=== PATIENT | female | born 2000 | race Caucasian/White ===

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

== ENCOUNTER 2022-10-26 10:24 | Emergency (ER) | payer BC, SELFPAY ==
--- OUTSIDE RECORDS SUMMARY | 2022-10-26 10:28 | XMS REPORT | Continuity of Care Document ---
:2000 Author Organization [facility] t Address [address] [place] [address] [address] [place] [address] Care Team Providers Name Role Phone Vero Healy Attending Clinician Gaye KINNEY, Leandra Attending Clinician Gaye KINNEY, Leandra Admitting Clinician Payers Payer Name Policy Type Policy Number Effective Date Expiration Date [facility] [id number] 2017 GLOBAL 00:00:00 Problems Condition Condition Condition Status Onset Resolution Last Treating Co mments Source Name Details Category Date Date Treatment Clinician Date Tylenol Tylenol Disease Active Univers toxicity, toxicity, 7-15 ity of [place] intent, 00 Me dical initial initial Branch encounter encounter Pharyngiti Pharyngiti Problem Active C ommon s, s, Spirit unspecifie unspecifie - [facility] d etiology d etiology [facility] Cough Cough Problem Active Common Spirit - [facility] Acute left Acute left Diagnosis Active Common ankle pain ankle pain Sp hank - [facility] Sprain of Sprain of Diagnosis Active C ommon anterior anterior Spirit talofibula talofibula - [facility] r ligament r ligament St of left of left [facility] ankle, ankle, Medical initial initial Center encounter encounter Allergies, Adverse Reactions, Alerts Allergy Allergy Status Severity Reaction(s) Onset Inactive Treating Comm ents Source Name Type Date Date Clinician NO KNOWN Drug Active Univers ALLERGIE Class [facility] [place] [facility] Social History Social Habit Start Date Stop Date Quantity Comments Source Exposure to Not sure [facility] SARS-CoV-2 [place] [facility] (event) Branch Tobacco use and 2021-06-02 2021-06-02 Never used Universit y of exposure 00:00:00 00:00:00 [facility] Alcohol intake 2021-06-02 2021-06-02 Ex-drinker [facility] 00:00:00 00:00:00 (finding) [facility] Sex Assigned At [birth year] Universit y of 00:00:00 00:00:00 [facility] Smoking Status Start Date Stop Date Source Never smoker [facility] Medications Ordered Filled Start Stop Current Ordering Indication Dosage Frequency Signature Comments Components Source Medication Medication Date Date Medication? Clinician (SIG) Name Name acetylcyste 2020- No 100mg/k 4,760 mg Univers ine 06-03 07-17 g (100 mg/kg ity of (ACETADOTE) 12:30: 04:29 ?47.6 kg), [place] 4,760 mg in 00 :00 IV Medical D5W 1,000 Infusion, Branc h mL IV CONTINUOUS infusion , Starting Third Dose Sun06/03/21 at 0730, For 16 hours NaCl 0.9% Yes 1000mL at 100 Univ ers (NS) IV 7-16 mL/hr, IV ity of infusion 08:30: Infusion[place] 1[place]000 [place] 00 CONTINUOUS Medic al , Starting Branch Sun06/03/21 at 0330, Until Discontinu ed, Routine NaCl 0.9% 2020- No 1000mL at 999 Uni vers (NS) bolus 06-03 07-16 mL/hr, ity of infusion 08:30: 07:51 1,000 mL, [place] as 1,000 mL 00 :00 IV Medical Piggyback, Branch ONCE, 1 dose, Sun06/03/21 at 0330, STAT ondansetron Yes 4mg 4 mg, Slow Univers (ZOFRAN 7-16 IV Push, ity of (PF)) 07:13: Q6HPRN, [place] injection 4 44 Starting Medi sheldon mg Fri [place] 06/03/21 at 0213, Until Discontinu ed, Routine, Nausea and Vomiting (N/V) ondansetron 2020- No 4mg 4 mg, Slow Univers (ZOFRAN 7-16 07-16 IV Push, ity of (PF)) 03:45: 02:40 ONCE, 1 [place] injection 4 00 :00 dose, [place] Med ical mg 06/02/21 at Branch 2245, Routine pantoprazol No 80mg 80 mg, IV Univers e 06-03 Push, ity of (PROTONIX) 00:00: 23:15 ONCE, 1 [place] as 80 mg in 00 :00 dose, [place] Medica l NaCl 0.9% 06/02/21 at Bran ch (NS) 20 mL 1900, 20 syringe mL NaCl 0.9% 2020- No 1000mL at 999 Uni vers (NS) bolus 06-03 mL/hr, ity of infusion 00:00: 23:12 1,000 mL, Jordy as 1,000 mL 00 :00 IV Medical Infusion, Branch ONCE, 1 dose, [place] 06/02/21 at 1900, STAT sulfamethox 2020- No [id number] 1{tbl} Take 1 [facility] [place] [facility] azole-trime 05-24 [id number] tablet by ity of thoprim 00:00: 00:00 mouth 2 [place] 800-160 mg 00 :00 (two) Medical per tablet times [place] daily. Vital Signs Vital Name Observation Time Observation Value Comments Source Systolic blood 2021-06-03 16:00:00 105 [facility]Hg[facility] Diastolic blood 2021-06-03 16:00:00 72 mm[Hg] [facility] Heart rate 2021-06-03 16:00:00 69 /min [facility] Body temperature 2021-06-03 16:00:00 36.17 Michelle [facility] Respiratory rate 2021-06-03 16:00:00 18 /min [facility] Oxygen saturation in 2021-06-03 16:00:00 99 /min [facility] Arterial blood by [facility] Pulse oximetry [place] Body height 2021-06-02 22:38:00 162.6 cm [facility] Body weight 2021-06-02 22:38:00 47.628 kg [facility] BMI 2021-06-02 22:38:00 18.02 kg/m2 [facility] Procedures Procedure Date / Time Performing Clinician Source Performed COMP. METABOLIC PANEL 2021-06-03 13:23:00 Gaye golden [facility] ([id number]) Medical Branch ACETAMINOPHEN 2021-06-03 13:23:00 Gaye golden [facility] AMMONIA, PLASMA 2021-06-03 11:30:00 Gaye [facility] LIPID PANEL 2021-06-03 09:51:00 Gaye [facility] ([id number])(TOTAL Medical [place] CHOLESTEROL, TRIGLYCERIDES, HDL) ACUTE CARE VENOUS BLOOD 2021-06-03 07:57:00 Gaye [facility] GAS [facility] LACTIC ACID WHOLE BLOOD 2021-06-03 07:57:00 Gaye [facility] PHOSPHORUS 2021-06-03 07:52:00 Gaye [facility] MAGNESIUM 2021-06-03 07:52:00 Gaye [facility] THYROID STIMULATING 2021-06-03 07:52:00 Gaye golden [facility] HORMONE [facility] BASIC METABOLIC PANEL 2021-06-03 07:52:00 Gaye [facility] (NA, K, CL, CO2, Medical [place] GLUCOSE, BUN, CREATININE, CA) SALICYLATE 2021-06-03 07:52:00 Gaye golden [facility] PROTHROMBIN TIME / INR 2021-06-03 07:52:00 Gaye golden [facility] XR CHEST 1 VW 2021-06-02 23:49:45 Vero Saldana [facility] POCT TEST 2021-06-02 23:20:00 Vero Saldana [facility] COVID-19 (ID NOW RAPID 2021-06-02 23:10:00 [facility] COMP. METABOLIC PANEL 2021-06-02 23:07:00 Vero Saldana [facility] ([id number]) Medical Branch SALICYLATE 2021-06-02 23:07:00 Vero Saldana [facility] ETHANOL 2021-06-02 23:07:00 Vero Saldana [facility] URINE DRUG (IMMUNOASSAY) 2021-06-02 23:07:[address] [facility] SCREEN CBC WITH DIFF 2021-06-02 23:07:00 Vero Saldana [facility] GLYCOSYLATED HEMOGLOBIN 2021-06-02 23:07:00 Leandra Huizar [facility] (A1C) [facility] URINALYSIS 2021-06-02 23:07:00 Vero Saldana [facility] LIPASE 2021-06-02 23:07:00 [facility] Start End Encounter Admission Attending Care Care Encounter Source Date/Time Date/Time Type Type Clinicians Facility Department ID 2021-09-19 Emergency [facility] [id number] Univers 08:33:01 ity [facility] 2021-06-02 2021-06-03 Emergency Vero Saldana [facility] [id number] Univers 17:41:00 12:55:00 Leandra Huizar [place] [id number] [facility] [id number] [facility] [id number] [place] [id number] Branch 2018-07-08 2018-07-08 [facility] Common 10:30:00 10:30:00 [facility] Results Test Description Test Time Test Comments Results Result Comments Source ACETAMINOPHEN 2021-06-03 14:22:06 Test Item Value Reference Range Interpretation Comme nts ACETAMINOP (test code = 4837826455) <10.0 10.0-30.0 L HORTENCIA (test code = HORTENCIA) Toxic: Greater than 200 ug/mL @ 4 hour post ingestion or greater than 50 ug/mL @ 12 hour post ingestion Lab Interpretation (test code = Abnormal 67384-3) [id number]2021-06-03 14:21:45 Test Item Value Reference Range Interpretation Comments NA (test code = 136 mmol/L 135-145 3307859838) K (test code = 3.7 mmol/L 3.5-5.0 6158829951) CL (test code = 110 mmol/L 98-108 H 5051392253) CO2 TOTAL (test code = 19 mmol/L 23-31 L 6818008005) AGAP (test code = 2-16 0517282085) BUN (test code = 8 mg/dL 7-23 5817745975) GLUCOSE (test code = 132 mg/dL 70-110 H 3457755165) CREATININE (test code = 0.44 mg/dL 0.50-1.04 L 5471286010) TOTAL BILI (test code = 0.5 mg/dL 0.1-1.9 7456607740) CALCIUM (test code = 8.6 mg/dL 8.6-10.6 2164225227) T PROTEIN (test code = 6.4 g/dL 6.3-8.2 5260259815) ALBUMIN (test code = 3.4 g/dL 3.5-5.0 L 6883946616) ALK PHOS (test code = 45 U/L 34-122 5985785061) ALTv (test code = 13 U/L 5-35 1742-6) AST(SGOT) (test code = 24 U/L 13-40 9421013895) eGFR (test code = mL/min/1.73m2 7588639925) HORTENCIA (test code = HORTENCIA) Association of Glomerular Filtration Rate (GFR) and Staging of Kidney Disease* + --+ --+ ------+| GFR (mL/min/1.73 m2) ?| With Kidney Damage ?| ?Without Kidney Damage+ --------+ --------+ +| ?>90 ?| ?Stage one ?| ? Normal ?+ ---+ ---+ -------+| ?60-89 ?| ?Stage two ?| ? Decreased GFR ? + --+ --+ ------+| ?30-59 ?| ?Stage three ?| ? Stage three ? + --+ --+ ------+| ?15-29 ?| ?Stage four ? | ? Stage four ?+ ---+ ---+ -------+| ?<15 (or dialysis) ? ?| ?Stage five ? | ? Stage five ?+ ---+ ---+ -------+ *Each stage assumes the associated GFR level has been in effect for at least three months. ?Stages 1 to 5, with or without kidney disease, indicate chronic kidney disease. Notes: Determination of stages one and two (with eGFR >59mL/min/1.73 m2) requires estimation of kidney damage for at least three months as defined by structural or functional abnormalities of the kidney, manifested by either:Pathological abnormalities or Markers of kidney damage (including abnormalities in the composition of the blood or urine or abnormalities in imaging tests). Lab Interpretation Abnormal (test code = 61495-6) [facility], [id number] 12:23:13 Test Item Value Reference Range Interpretation Comments AMMONIA (test code = 4751757324) <9 9-33 L Lab Interpretation (test code = Abnormal 68273-0) [facility] CenterL[facility] ([id number])(TOTAL CHOLESTEROL, TRIGLYCERIDES, HDL)2021-06-03 10:46:29 Test Item Value Reference Range Interpretation Comments CHOL (test code = 72 mg/dL 120-200 L 6530420241) HDL (test code = 31 mg/dL >50 L 9663531842) HDLC RATIO (test code = See_Comment [Au tomated message] 5161625811) The system Incont generated this result transmitted ref erence range: <=4.5. T he reference range was not used to int erpret this result as normal/abnormal . TRIG (test code = 28 mg/dL 30-170 L 6534715560) LDL CHOL (test code = 35 mg/dL See_Comment [Auto mated message] 41885-9) The system Incont generated this result transmitted ref erence range: <=160. T he reference range was not used to int erpret this result as normal/abnormal . VLDL (test code = 6 mg/dL 5-60 3599559504) Lab Interpretation (test Abnormal code = 48452-0) [facility] Center[facility] STIMULATING [id number] 10:19:36 Test Item Value Reference Range Interpretation Comments TSH (test code = See_Comment [Automated message] 4897129474) The system Incont generated this result transmitted ref erence range: 0.45 - 4 .70 mIU/L. The refe rence range was not u sed to interpret this result as normal/abnor mal. Lab Interpretation (test Normal code = 64450-5) [facility]2021-[facility]-16 09:48:34 Test Item Value Reference Range Interpretation Comments MAGNESIUM (test code = 9067748105) 1.9 mg/dL 1.7-2.4 Lab Interpretation (test code = Normal 66888-2) [facility]2021-[facility]-16 09:48:33 Test Item Value Reference Range Interpretation Comments PHOSPHORUS (test code = 4431256598) 3.8 mg/dL 2.5-5.0 Lab Interpretation (test code = Normal 67284-2) [facility] CenterPROTHROMBIN TIME / [id number] 09:16:27 Test Item Value Reference Range Interpretation Comments PROTIME PATIENT (test See_Comment [Auto mated message] code = 5964-2) The system [employer] generated this result transmitted ref erence range: 12.0 - 1 4.7 Seconds. The re ference range was not u sed to interpret this result as normal/abnor mal. INR (test code = 6301-6) Nor mal INR <1.1; Warfarin Therap eutic range 2.0 to 3. 0 or 2.5 to 3.5, dep ending upon the indica tions. Lab Interpretation (test Normal code = 71713-7) [facility] CenterSAL[facility]ATE2021-07-16 08:54:06 Test Item Value Reference Range Interpretation Comments SALICYLATE (test code <10 mg/L = 3976128986) HORTENCIA (test code = HORTENCIA) Therapeutic Range: ? Analgesic and Antipyretic Use ? 20-100 mg/L ? ? Anti-Inflammatory Use ? 100-250 mg/L Toxic Range: ? Greater than 300 mg/L [facility]ACET[facility]INOP[facility]EN2021-07-16 08:52:24 Test Item Value Reference Range Interpretation Comments ACETAMINOP (test code = 13.0 ug/mL 10.0-30.0 8744891560) HORTENCIA (test code = HORTENCIA) Toxic: Greater than 200 ug/mL @ 4 hour post ingestion or greater than 50 ug/mL @ 12 hour post ingestion Lab Interpretation (test Normal code = 02852-5) [facility] METABOLIC PANEL (NA, K, CL, CO2, GLUCOSE, BUN, CREATININE, CA)2021-06-03 08:51:44 Test Item Value Reference Range Interpretation Comments NA (test code = 138 mmol/L 135-145 9659374357) K (test code = 4.1 mmol/L 3.5-5.0 5491079095) CL (test code = 111 mmol/L 98-108 H 2797901780) CO2 TOTAL (test code = 20 mmol/L 23-31 L 7841387541) AGAP (test code = 2-16 5750961058) BUN (test code = 12 mg/dL 7-23 1577705707) GLUCOSE (test code = 106 mg/dL 70-110 6786434358) CREATININE (test code = 0.50 mg/dL 0.50-1.04 1778723735) CALCIUM (test code = 8.9 mg/dL 8.6-10.6 9552341048) eGFR (test code = mL/min/1.73m2 8184610248) HORTENCIA (test code = HORTENCIA) Association of Glomerular Filtration Rate (GFR) and Staging of Kidney Disease* + --+ --+ ------+| GFR (mL/min/1.73 m2) ?| With Kidney Damage ?| ?Without Kidney Damage+ --------+ --------+ +| ?>90 ?| ?Stage one ?| ? Normal ?+ ---+ ---+ -------+| ?60-89 ?| ?Stage two ?| ? Decreased GFR ? + --+ --+ ------+| ?30-59 ?| ?Stage three ?| ? Stage three ? + --+ --+ ------+| ?15-29 ?| ?Stage four ? | ? Stage four ?+ ---+ ---+ -------+| ?<15 (or dialysis) ? ?| ?Stage five ? | ? Stage five ?+ ---+ ---+ -------+ *Each stage assumes the associated GFR level has been in effect for at least three months. ?Stages 1 to 5, with or without kidney disease, indicate chronic kidney disease. Notes: Determination of stages one and two (with eGFR >59mL/min/1.73 m2) requires estimation of kidney damage for at least three months as defined by structural or functional abnormalities of the kidney, manifested by either:Pathological abnormalities or Markers of kidney damage (including abnormalities in the composition of the blood or urine or abnormalities in imaging tests). Lab Interpretation Abnormal (test code = 76211-6) [facility] CenterGLYCOSYLATED HEMOGLOBIN (A1C)2021-06-03 08:51:34 Test Item Value Reference Range Interpretation Comments HGB A1C (test code = 5.0 % 4.0-5.7 4548-4) HORTENCIA (test code = HORTENCIA) Reference RangesNormal: <5.7%Prediabetes: 5.7 - 6.4%Diabetes: > 6.5% Lab Interpretation (test Normal code = 07964-9) [facility] VENOUS BLOOD [id number] 08:09:06 Test Item Value Reference Range Interpretation Comments PH (test code = 7.32-7.42 4782434823) PCO2 ZAHRAA (test code = See_Comment L [Auto mated message] 1913870643) The system Incont generated this result transmitted ref erence range: 41 - 51 mmHg. The reference r aby was not used to interpret this result as normal/abnor mal. PO2 ZAHRAA (test code = See_Comment HH [Autom ated message] 7872806798) The system In[employer] generated this result transmitted ref erence range: 25 - 40 mmHg. The reference r aby was not used to interpret this result as normal/abnor mal. HCO3 ZAHRAA (test code = See_Comment L [Auto mated message] 1585113180) The system Incont generated this result transmitted ref erence range: 24 - 28 mEq/L. The reference r aby was not used to interpret this result as normal/abnor mal. AC VBE(BEAKER) (test mEq/L code = 1045772409) Lab Interpretation (test Abnormal code = 52133-5) [facility] CenterLactic Acid Whole [id number] 08:08:21 Test Item Value Reference Range Interpretation Comments LACTIC ACID (test code = 0.74 mmol/L 0.50-2.20 6257513988) Lab Interpretation (test code = Normal 08988-5) [facility] CenterXR CHEST 1 [id number] 00:59:36 No acute cardiopulmonary process. Preliminary Report Dictated by Resident: Victor Manuel Leary MD., have reviewed this study and agree withthe above report.EXAM: XR CHEST 1 VW CLINICAL INDICATION: suicidal COMPARISON: None TECHNIQUE: Frontal and lateral views of the chest were obtained. FINDINGS: No focal consolidation, pleural effusion, or pneumothorax. The cardiac silhouette i s normal in size. No acute osseous abnormality. [facility], Radiant Results Inft User - 06/02/2021 8:00 PMCDT EXAM: XR CHEST 1 VWCLINICAL INDICATION: suicidal COMPARISON: NoneTECHNIQUE: Frontal and lateral views of the chest were obtained.FINDINGS:No focal consolidation, pleural effusion, or pneumothorax. The cardiac silhouette is normal in size.No acute osseous abnormality. IMPRESSIONNo acute cardiopulmonary process.Preliminary Report Dictatedby Resident: Victor Manuel Robles MD., have reviewed this study and agree withtheabove report.[facility] CenterACETAMINOPHEN2021-07-16 00:30:38 Test Item Value Reference Range Interpretation Comments ACETAMINOP (test code = 105.0 ug/mL 10.0-30.0 H 2669967542) HORTENCIA (test code = HORTENCIA) Toxic: Greater than 200 ug/mL @ 4 hour post ingestion or greater than 50 ug/mL @ 12 hour post ingestion Lab Interpretation (test Abnormal code = 50734-3) [facility] CenterUR[facility]UG (IMMUNOASSAY) - COMPREHENSIVE DRUG [id number] 00:26:28 Test Item Value Reference Range Interpretation Comments AMPHET (test code = Negative Negative 7641114680) JOSY U (test code = Negative Negative 7915339734) BENZO U (test code = Negative Negative 1380102619) Cocaine Metabolite (test Negative Negative code = 5112947658) METHADONE (test code = Negative Negative 7910189960) OPIATES (test code = Negative Negative 1675198209) PCP (test code = Negative Negative 8406405302) THC (test code = Presumptive Positive Negative A 8059287705) HORTENCIA (test code = HORTENCIA) Urine Drug Cutoff Ranges Cocaine: ? 150 ng/mLBenzodiazepines: ? ? 200 ng/mLMethadone: ? 300 ng/mLAmphetamine: ? 1,000 ng/mLOpiates: ? 300 ng/mLCannabinoids: ?50 ng/mLPhencyclidine: ? ? ? 25 ng/mLBarbiturates: ?200 ng/mL The results are to be used only for medical (i.e., treatment) purposes. Unconfirmed screening results must not be used for non-medical purposes (e.g., employment testing, legal testing). Lab Interpretation (test Abnormal code = 25475-0) [facility] CenterSALICYLATE2021-07-16 00:20:36 Test Item Value Reference Range Interpretation Comments SALICYLATE (test code <10 mg/L = 9691213507) HORTENCIA (test code = HORTENCIA) Therapeutic Range: ? Analgesic and Antipyretic Use ? 20-100 mg/L ? ? Anti-Inflammatory Use ? 100-250 mg/L Toxic Range: ? Greater than 300 mg/L [facility] CenterETHANOL2021-07-16 00:09:42 Test Item Value Reference Range Interpretation Comments ALCOHOL (test code = <10 mg/dL 4767404662) HORTENCIA (test code = HORTENCIA) <10 Dtxvaauk96-714 Toxic>100 Depression of SALESPERSON TRAILERS AND MOTOR HOMES>400 Fatalities Reported [facility] CenterCOMP. METABOLIC PANEL ([id number])2021-06-03 00:08:51 Test Item Value Reference Range Interpretation Comments NA (test code = 143 mmol/L 135-145 4365284834) K (test code = 3.7 mmol/L 3.5-5.0 6832096664) CL (test code = 107 mmol/L 98-108 3058362666) CO2 TOTAL (test code = 23 mmol/L 23-31 6771525093) AGAP (test code = 2-16 2026851712) BUN (test code = 14 mg/dL 7-23 5074360322) GLUCOSE (test code = 93 mg/dL 70-110 3902174582) CREATININE (test code = 0.64 mg/dL 0.50-1.04 2770440996) TOTAL BILI (test code = 0.4 mg/dL 0.1-1.3 8850472613) CALCIUM (test code = 9.7 mg/dL 8.6-10.6 7707353205) T PROTEIN (test code = 8.8 g/dL 6.3-8.2 H 0045965038) ALBUMIN (test code = 5.2 g/dL 3.5-5.0 H 1195535038) ALK PHOS (test code = 78 U/L 34-122 6847641299) ALTv (test code = 15 U/L 5-35 1742-6) AST(SGOT) (test code = 27 U/L 13-40 3182135204) eGFR (test code = mL/min/1.73m2 5285549806) HORTENCIA (test code = HORTENCIA) Association of Glomerular Filtration Rate (GFR) and Staging of Kidney Disease* + --+ --+ ------+| GFR (mL/min/1.73 m2) ?| With Kidney Damage ?| ?Without Kidney Damage+ --------+ --------+ +| ?>90 ?| ?Stage one ?| ? Normal ?+ ---+ ---+ -------+| ?60-89 ?| ?Stage two ?| ? Decreased GFR ? + --+ --+ ------+| ?30-59 ?| ?Stage three ?| ? Stage three ? + --+ --+ ------+| ?15-29 ?| ?Stage four ? | ? Stage four ?+ ---+ ---+ -------+| ?<15 (or dialysis) ? ?| ?Stage five ? | ? Stage five ?+ ---+ ---+ -------+ *Each stage assumes the associated GFR level has been in effect for at least three months. ?Stages 1 to 5, with or without kidney disease, indicate chronic kidney disease. Notes: Determination of stages one and two (with eGFR >59mL/min/1.73 m2) requires estimation of kidney damage for at least three months as defined by structural or functional abnormalities of the kidney, manifested by either:Pathological abnormalities or Markers of kidney damage (including abnormalities in the composition of the blood or urine or abnormalities in imaging tests). Lab Interpretation Abnormal (test code = 93897-0) [facility] CenterLIPASE2021-07-16 00:08:51 Test Item Value Reference Range Interpretation Comments LIPASE (test code = 4002336178) 58 U/L 0-220 Lab Interpretation (test code = Normal 72758-2) [facility] CenterURINALYSIS2021-07-16 00:07:31 Test Item Value Reference Range Interpretation Comments APPEARANCE (test code = Cloudy Clear A 9941280605) COLOR (test code = Yellow Yellow 7684863577) PH (test code = 4.8-8.0 8043384820) SP GRAVITY (test code = 1.003-1.030 H 2237745201) GLU U QUAL (test code = Normal Normal 9147893777) BLOOD (test code = Negative Negative 3112094176) KETONES (test code = Negative Negative 1344527434) PROTEIN (test code = 30 mg/dL Negative A 2887-8) UROBILIN (test code = Normal Normal 0388608593) BILIRUBIN (test code = Negative Negative 0760284126) NITRITE (test code = Negative Negative 1755588058) LEUK GIOVANNY (test code = Negative Negative 0603751347) RBC/HPF (test code = See_Comment H [Autom ated message] 3972290405) The system Incont generated this result transmitted ref erence range: 0 - 3 HP F. The reference range was not used to int erpret this result as normal/abnormal . WBC/HPF (test code = See_Comment [Autom ated message] 8791579997) The system Incont generated this result transmitted ref erence range: 0 - 5 HP F. The reference range was not used to int erpret this result as normal/abnormal . BACTERIA (test code = Few Negative A 0922506482) MUCOUS (test code = Marked Negative LPF A 4459711258) SQ EPITH (test code = HPF 4080619422) CA OXALATE (test code = See_Comment H [Au tomated message] 7085364015) The system Incont generated this result transmitted ref erence range: <=1 HPF. The reference range was not used to int erpret this result as normal/abnormal . Lab Interpretation (test Abnormal code = 54663-2) [facility] CenterCBC WITH [id number] 23:56:26 Test Item Value Reference Range Interpretation Comments WBC (test code = See_Comment [Automated 6690-2) message] The sy stem which generated this result transmitted reference range : 4.50 - 13.50 10*3/?L. The reference range was not used to interpret this result as normal/abnormal . RBC (test code = See_Comment [Automated 789-8) message] The sy stem which generated this result transmitted reference range : 4.10 - 5.10 10*6/?L. The reference range was not used to interpret this result as normal/abnormal . HGB (test code = 13.7 g/dL 12.0-16.0 718-7) HCT (test code = 41.7 % 36.0-45.0 4544-3) MCV (test code = 95.6 fL 78.0-95.0 H 787-2) MCH (test code = 31.4 pg 26.0-32.0 785-6) MCHC (test code = 32.9 g/dL 32.0-36.0 786-4) RDW-SD (test code = 45.3 fL 38.5-49.0 83230-2) RDW-CV (test code = 12.8 % 11.5-14.0 788-0) PLT (test code = See_Comment [Automated 777-3) message] The sy stem which generated this result transmitted reference range : 135 - 361 10*3/ ?L. The reference r aby was not used to interpret this result as normal/abnormal . MPV (test code = 11.1 fL 9.4-13.3 41171-3) NRBC/100 WBC (test See_Comment [Automat ed code = [id number]) message] The system which generated this result transmitted reference range : 0.0 - 10.0 /100 WBCs. The refer ence range was not u sed to interpret th is result as normal/abnormal . NRBC x10^3 (test code <0.01 See_Comment [Auto mated = [id number]) message] The s ystem which generated this result transmitted reference range : 10*3/?L. The reference range was not used to interpret this result as normal/abnormal . GRAN MAT (NEUT) % 62.6 % (test code = 770-8) IMM GRAN % (test code 0.30 % = 0115422385) LYMPH % (test code = 26.0 % 736-9) MONO % (test code = 9.6 % 5905-5) EOS % (test code = 0.9 % 713-8) BASO % (test code = 0.6 % 706-2) GRAN MAT x10^3(ANC) 4.36 10*3/uL 1.50-10.30 (test code = 4020462826) IMM GRAN x10^3 (test <0.03 0.00-0.06 code = 5885112997) LYMPH x10^3 (test code 1.81 10*3/uL 0.70-7.40 = 731-0) MONO x10^3 (test code 0.67 10*3/uL 0.00-0.50 H = 742-7) EOS x10^3 (test code = 0.06 10*3/uL 0.00-0.40 711-2) BASO x10^3 (test code 0.04 10*3/uL 0.00-0.10 = 704-7) Lab Interpretation Abnormal (test code = 85698-0) [facility]2021-06-02 23:40:07 Test Item Value Reference Range Interpretation Comments SARS-CoV-2 Rapid ID NOW Not Detected Not Detected (test code = 96086-7) HORTENCIA (test code = HORTENCIA) ID NOW COVID-19 Assay is an isothermal nucleic acid amplification test intended for the qualitative detection of nucleic acid from SARS-CoV-2 viral RNA in nasopharyngeal (DISTRIBUTION DISPATCHER) specimens. It is used under Emergency Use Authorization (EUA) by FDA. The limit of detection (LOD) of the assay is 125 Genome Equivalents/mL. A positive result is indicative of the presence of SARS-CoV-2 RNA. ?Clinical correlation with patient history and other diagnostic information is necessary to determine patient infection status. A negative (Not Detected) result does not preclude SARS-CoV-2 infection. In patients with clinical symptoms and other tests that are consistent with SARS-CoV-2 infection, negative results should be treated as presumptive negative and a new specimen should be tested with alternative PCR molecular test. Invalid: Please collect a new specimen for repeat patient testing if clinically indicated. Lab Interpretation Normal (test code = 65135-2) [id number] Test Item Value Reference Range Interpretation Comments POCT PREG (test code = 1605) negative On board controls acceptable with present C Line (test code = 3574) POCT PREG LOT # (test code = 3575) [id number] POCT PREG TEST DATE (test 11-18-2022 code = 3576) Lab Interpretation (test code = Normal 67017-0) [facility]"
[2022-10-26 11:21] LABS: Urine Blood Trace-lysed (Negative); Urine Glucose Negative (Negative); Urine Protein Trace (Negative)
[2022-10-26 11:41] LABS: Urine Mucus Slight /HPF (None Seen)
--- NOTE | 2022-10-26 12:22 | ER ---
Nurse's Notes [facility] Name: Amy Corral Age: 22 yrs Sex: Female : 2000 Arrival Date: 10/26/2022 Time: 10:27 Bed Treatment Private MD: Diagnosis: UTI/ Urinary tract infection, site not specified Presentation: 10/26 10:32 Chief complaint: Patient states: she has been having UTI symptoms for approx one week. ap3 patient states she took AZO pills and her symptoms have not improved. She states she now has right lower back pain, and her urine has gone from a highway maintainer color to a cloudy color. Coronavirus screen: At this time, the client does not indicate any symptoms associated with coronavirus-19. Ebola Screen: No symptoms or risks identified at this time. Initial Sepsis Screen: Does the patient meet any 2 criteria? No. Patient's initial sepsis screen is negative. Does the patient have a suspected source of infection? No. Patient's initial sepsis screen is negative. Risk Assessment: Do you want to hurt yourself or someone else? Patient reports no desire to harm self or others. Onset of symptoms is unknown. 10:32 Method Of Arrival: Ambulatory ap3 10:32 Acuity: LIAM 3 ap3 Triage Assessment: 10:34 General: Appears in no apparent distress. Behavior is calm, cooperative. Pain: ap3 Complains of pain in right low back. Neuro: Level of Consciousness is awake, alert, obeys commands, Oriented to person, place, time, situation, Gait is steady, Speech is normal. Respiratory: Airway is patent Respiratory effort is even, unlabored, Respiratory pattern is regular, symmetrical. : Reports uti symptoms. 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 - Social history:: Smoking status: Patient denies any tobacco usage or history of. - Family history:: not pertinent. - Hospitalizations: : No recent hospitalization is reported. Screenin:37 Abuse screen: Denies threats or abuse. Nutritional screening: No deficits noted. kr3 Tuberculosis screening: No symptoms or risk factors identified. Fall Risk None identified. Assessment: 12:35 General: Appears in no apparent distress. comfortable, Behavior is calm, cooperative, kr3 appropriate for age. Pain: Complains of pain in back. Neuro: Level of Consciousness is awake, alert, obeys commands. Cardiovascular: Patient's skin is warm and dry. Respiratory: Airway is patent Respiratory effort is even, unlabored, Respiratory pattern is regular, symmetrical. GI: No signs and/or symptoms were reported involving the gastrointestinal system. : Urine is cloudy. EENT: No signs and/or symptoms were reported regarding the EENT system. Derm: Skin is dry. Musculoskeletal: Circulation, motion, and sensation intact. Vital Signs: 10:32 BP 122 / 81; Pulse 83; Resp 17; Temp 98.1; Pulse Ox 100% ; Weight 50.8 kg; Height 5 ft. ap3 3 in. (160.02 cm); 12:37 BP 118 / 83; Pulse 68; Resp 16; Pulse Ox 100% on R/A; kr3 10:32 Body Mass Index 19.84 (50.80 kg, 160.02 cm) ap3 ED Course: 10:27 Patient arrived in ED. as 10:28 Ralph Eckert MD is Attending Physician. rn 10:34 Triage completed. ap3 10:36 Arm band placed on left wrist. ap3 10:45 Bed in low position. Call light in reach. Side rails up X 1. kr3 11:22 Lalitha Vasquez RN is Primary Nurse. kr3 12:37 No provider procedures requiring assistance completed. Patient did not have IV access kr3 during this emergency room visit. Administered Medications: 12:35 Drug: DiFLUcan (fluconazole) 200 mg Route: PO; kr3 12:35 Follow up: Response: No adverse reaction kr3 12:35 Drug: Cipro (ciprofloxacin) 500 mg Route: PO; kr3 12:35 Follow up: Response: No adverse reaction kr3 Medication: 12:38 VIS not applicable for this client. kr3 Outcome: 12:21 Discharge ordered by . rn 12:37 Discharged to home ambulatory. kr3 12:37 Condition: stable 12:37 Discharge instructions given to patient, Instructed on discharge instructions, follow up and referral plans. medication usage, Demonstrated understanding of instructions, follow-up care, medications, Prescriptions given X 3. 12:38 Patient left the ED. kr3 Signatures: Barby Palomino Roman, MD MD rn Ilana Driscoll RN RN ap3 Lalitha Vasquez RN RN kr3
--- NOTE | 2022-10-26 12:23 | EDPHYS ---
Physician Documentation [facility] Name: Amy Corral Age: 22 yrs Sex: Female : 2000 Arrival Date: 10/26/2022 Time: 10:27 Bed Treatment Private MD: ED Physician Ralph Eckert HPI: 10/26 10:45 This 22 yrs old Female presents to ER via Ambulatory with complaints of Urinary rn Problem, Low Back Pain. 10:45 The patient presents with urinary symptoms, frequency, urgency. Onset: The rn symptoms/episode began/occurred 1 week(s) ago. Modifying factors: The symptoms are alleviated by nothing, the symptoms are aggravated by urinating. Associated signs and symptoms: Pertinent positives: urinary frequency, Pertinent negatives: fever, vaginal discharge. Severity of symptoms: At their worst the symptoms were mild, in the emergency department the symptoms are unchanged. The patient has not experienced similar symptoms in the past. The patient has not recently seen a physician. Pt reports 1 week of urinary frequency and low back pain. No injury. No hx of UTI. Not . No fever/chills. No abd pain.. 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 - Social history:: Smoking status: Patient denies any tobacco usage or history of. - Family history:: not pertinent. - Hospitalizations: : No recent hospitalization is reported. ROS: 10:45 Constitutional: Negative for fever, chills, and weight loss, Eyes: Negative for injury, rn pain, redness, and discharge, Neck: Negative for injury, pain, and swelling, Cardiovascular: Negative for chest pain, palpitations, and edema, Respiratory: Negative for shortness of breath, cough, wheezing, and pleuritic chest pain, Abdomen/GI: Negative for abdominal pain, nausea, vomiting, diarrhea, and constipation, Back: Negative for injury : + urinary frequency and urgency MS/Extremity: Negative for injury and deformity, Skin: Negative for injury, rash, and discoloration, Neuro: Negative for headache, weakness, numbness, tingling, and seizure. Exam: 10:45 Constitutional: This is a well developed, well nourished patient who is awake, alert, rn and in no acute distress. Head/Face: Normocephalic, atraumatic. Cardiovascular: Regular rate and rhythm. No pulse deficits. Respiratory: No increased work of breathing, no retractions or nasal flaring. Abdomen/GI: soft, non-tender, no peritoneal signs Back: No spinal tenderness. No costovertebral tenderness. Full range of motion. Skin: Warm, dry MS/ Extremity: Pulses equal, no cyanosis. Neuro: Awake and alert, GCS 15 Vital Signs: 10:32 BP 122 / 81; Pulse 83; Resp 17; Temp 98.1; Pulse Ox 100% ; Weight 50.8 kg; Height 5 ft. ap3 3 in. (160.02 cm); 12:37 BP 118 / 83; Pulse 68; Resp 16; Pulse Ox 100% on R/A; kr3 10:32 Body Mass Index 19.84 (50.80 kg, 160.02 cm) ap3 MDM: 10:28 Patient medically screened. rn 12:20 Differential diagnosis: urinary tract infection, vaginosis, yeast infection. Data rn reviewed: vital signs, nurses notes, lab test result(s), and as a result, I will discharge patient. Counseling: I had a detailed discussion with the patient and/or guardian regarding: the historical points, exam findings, and any diagnostic results supporting the discharge/admit diagnosis, lab results, the need for outpatient follow up, to return to the emergency department if symptoms worsen or persist or if there are any questions or concerns that arise at home. Special discussion: I discussed with the patient/guardian in detail that at this point there is no indication for admission to the hospital. It is understood, however, that if the symptoms persist or worsen the patient needs to return immediately for re-evaluation. 10/26 10:40 Order name: Urine Culture rn 10/26 10:40 Order name: Urine Microscopic Only; Complete Time: 12:15 rn 10/26 11:21 Order name: Urine Dipstick-Ancillary; Complete Time: 11:30 EDMS 10/26 11:32 Order name: Urine --Ancillary (enter results) kj1 10/26 10:40 Order name: Urine Dipstick-Ancillary (obtain specimen); Complete Time: 11:22 rn 10/26 10:40 Order name: Urine Test (obtain specimen); Complete Time: : rn Administered Medications: 12:35 Drug: DiFLUcan (fluconazole) 200 mg Route: PO; kr3 12:35 Follow up: Response: No adverse reaction kr3 12:35 Drug: Cipro (ciprofloxacin) 500 mg Route: PO; kr3 12:35 Follow up: Response: No adverse reaction kr3 Disposition Summary: 10/26/22 12:21 Discharge Ordered Location: Home rn Problem: new rn Symptoms: have improved rn Condition: Stable rn Diagnosis - UTI/ Urinary tract infection, site not specified rn Followup: rn - With: Private Physician - When: As needed - Reason: Recheck today's complaints, Re-evaluation by your physician Discharge Instructions: - Discharge Summary Sheet rn - Urinary Tract Infection, Adult rn Forms: - Medication Reconciliation Form rn - Thank You Letter rn - Antibiotic l d rn - Prescription Opioid Use rn Prescriptions: - Pyridium 200 mg Oral Tablet - take 1 tablet by ORAL route every 8 hours for 3 days; 9 tablet; Refills: 0, rn Product Selection Permitted - Cipro 500 mg Oral Tablet - take 1 tablet by ORAL route every 12 hours for 7 days; 14 tablet; Refills: 0, rn Product Selection Permitted - Fluconazole 150 mg Oral Tablet - take 1 tablet by ORAL route twice, one week apart 1 week; 2 tablet; Refills: 0, rn Product Selection Permitted Signatures: Dispatcher [employer] Ralph Tinsley MD MD rn Prokisch, Amanda RN RN ap3 Lalitha Vasquez RN RN kr3
[2022-10-26] MEDS ORDERED: CIPROFLOXACIN HCL 500 MG TAB ONE (12:28)
[2022-10-26] MEDS ORDERED: FLUCONAZOLE 100 MG TAB ONE (12:28)
[2022-10-26 14:16] VITALS: TEMP 98.1; O2SAT 100
[2022-10-26 14:17] VITALS: BP 118/83
== END 2022-10-26 12:38 | disposition home or self-care (01) ==
LOC: ER 10:24
DX: N39.0 Urinary tract infection, site not specified (principal)
CPT/HCPCS: 81003; 81015; 81025; 87077; 87086; 87088; 87186; 99283

== ENCOUNTER 2023-06-13 14:31 | Emergency (ER) | payer BC, SELFPAY ==
--- OUTSIDE RECORDS SUMMARY | 2023-06-13 14:35 | XMS REPORT | Continuity of Care Document ---
:2000 Author Organization [facility] t Address [address] [facility] [address] [place] [address] Care Team Providers Name Role Phone Ziggy Velasquez Amanda Primary Care Physician LISA WARREN Attending Clinician Unavailable Erick JEONG, Eun Attending Clinician Unavailable Doctor Unassigned, [place] Attending Clinician Unavailable Lisa Fitzgerald Attending Clinician [phone] Vero Healy Attending Clinician Leandra Huizar MD Attending Clinician Leandra Huizar MD Admitting Clinician Payers Payer Name Policy Type Policy Number Effective Date Expiration Date [facility] [id number] 2017 [facility] 00:00:00 [place] [facility] [id number] 2023 00:00:00 Problems Condition Condition Condition Status Onset Resolution Last Treating Co mments Source Name Details Category Date Date Treatment Clinician Date Supervisio Supervisio Disease Active U nivers n of n of 7-13 ity of high[place]risk [place] Tylenol Tylenol Disease Active Univers toxicity, toxicity, 7-15 [place] intent, 00 Me dical initial initial Branch encounter encounter Pharyngiti Pharyngiti Problem Active C ommon s, s, Spirit unspecifie unspecifie - [facility] d etiology d etiology [facility] Cough Cough Problem Active Common Spirit - [facility] Acute left Acute left Diagnosis Active Common ankle pain ankle pain Sp hank - [facility] Sprain of Sprain of Diagnosis Active C ommon anterior anterior Spirit talofibula talofibula - [facility] r ligament r ligament St of left of left [facility] ankle, ankle, Medical initial initial Center encounter encounter Allergies, Adverse Reactions, Alerts Allergy Allergy Status Severity Reaction(s) Onset Inactive Treating Comm ents Source Name Type Date Date Clinician NO KNOWN Drug Active Univers ALLERGIE Class ity of S [facility] Social History Social Habit Start Date Stop Date Quantity Comments Source ASSERTION 2023-03-10 [facility] 00:00:00 [facility] Gender identity Universit y [facility] Sexual orientation [facility] Exposure to Not sure University SARS-CoV-2 (event) [facility] History of Social 2023-05-31 2023-05-31 Univers ity of function 00:00:00 00:00:00 [facility] Tobacco use and 2023-05-31 2023-05-31 Smokeless Universit y of exposure 00:00:00 00:00:00 tobacco non-user [facility] Alcohol intake 2023-05-31 2023-05-31 Ex-drinker [facility] 00:00:00 00:00:00 (finding) [facility] Sex Assigned At [birth year] Universit y of 00:00:00 00:00:00 [facility] Smoking Status Start Date Stop Date Source Never smoked tobacco [facility] Medications Ordered Filled Start Stop Current Ordering Indication Dosage Frequency Signature Comments Components Source Medication Medication Date Date Medication? Clinician (SIG) Name Name Yes [id number] 1{tbl} Take 1 U nivers [id number]-atkh- 7-13 tablet by ity of folic acid 00:00: mouth in [place] 29 mg iron- 00 the Medical 1 mg per morning. Branch tablet Yes [id number] 1{tbl} Take 1 U nivers yje29-ytak- 7-13 tablet by ity of folic acid 00:00: mouth in [place] as 29 mg iron- 00 the Medical 1 mg per morning. [place] tablet 2022-0 Yes [id number] 1{tbl} Take 1 U nivers gqr01-miwe- 7-13 tablet by ity of folic acid 00:00: mouth in [place] 29 mg iron- 00 the Medical 1 mg per morning. [place] tablet acetylcyste 0 2020- No 100mg/k 4,760 mg Univers ine 06-03 07-17 g (100 mg/kg ity of (ACETADOTE) 12:30: 04:29 ?47.6 kg), [place] 4,760 mg in 00 :00 IV Medical [...] 1000mL at 999 Uni vers (NS) bolus 06-03-16 mL/hr, ity of infusion 08:30: 07:51 1,000 mL, [place] as 1,000 mL 00 :00 IV Medical Piggyback, Megan ONCE, 1 dose, Sun06/03/21 at 0330, STAT ondansetron 0 Yes 4mg 4 mg, Slow Univers (ZOFRAN -16 IV Push, ity of (PF)) 07:13: Q6HPRN, [place] injection 4 44 Starting Medi sheldon mg Sun [place] 06/03/21 at 0213, Until Discontinu ed, Routine, Nausea and Vomiting (N/V) ondansetron 2020-0 2020- No 4mg 4 mg, Slow Univers (ZOFRAN 06-03-16 IV Push, ity of (PF)) 03:45: 02:40 ONCE, 1 [place] injection 4 00 :00 dose, Selam Med ical mg 06/02/21 at Branch 2245, Routine pantoprazol 2020-0 2020- No 80mg 80 mg, IV Univers e 06-0315 Push, ity of (PROTONIX) 00:00: 23:15 ONCE, 1 [place] as 80 mg in 00 :00 dose, Selam Medica l NaCl 0.9% 06/02/21 at Bran ch (NS) 20 mL 1900, 20 syringe mL NaCl 0.9% 2020- No 1000mL at 999 Uni vers (NS) bolus 06-03 07-15 mL/hr, ity of infusion 00:00: 23:12 1,000 mL, [place] as 1,000 mL 00 :00 IV Medical Infusion, Branch ONCE, 1 dose, Selam 06/02/21 at 1900, STAT sulfamethox 2020- No [id number] 1{tbl} Take 1 Univers azole-trime 05-24 [id number] tablet by ity of thoprim 00:00: 00:00 mouth 2 [place] 800-160 mg 00 :00 (two) Medical per tablet times Branch daily. Vital Signs Vital Name Observation Time Observation Value Comments Source Systolic blood 2023-05-31 14:50:00 115 mm[Hg] Univer sity [facility] Diastolic blood 2023-05-31 14:50:00 72 [facility] 2023-05-31 14:50:00 89 /min [facility] Body temperature 2023-05-31 14:50:00 36.44 Michelle [facility] Respiratory rate 2023-05-31 14:50:00 18 /min [facility] Body height 2023-05-31 14:50:00 162.6 cm [facility] Body weight 2023-05-31 14:50:00 54.159 kg [facility] BMI 2023-05-31 14:50:00 20.49 kg/m2 [facility] Systolic blood 2021-06-03 16:00:00 105 mm[Hg] Univer sity [facility] Diastolic blood 2021-06-03 16:00:00 72 mm[Hg] [facility] rate 2021-06-03 16:00:00 69 /min [facility] Body temperature 2021-06-03 16:00:00 36.17 Michelle [facility] Respiratory rate 2021-06-03 16:00:00 18 /min [facility] Oxygen saturation in 2021-06-03 16:00:00 99 /min [facility] Arterial blood by [facility] Pulse oximetry [place] Body height 2021-06-02 22:38:00 162.6 cm [facility] Body weight 2021-06-02 22:38:00 47.628 kg [facility] BMI 2021-06-02 22:38:00 18.02 kg/m2 [facility] Procedures Procedure Date / Time Performing Clinician Source Performed POCT TEST 2023-05-31 14:54:00 Lisa Warren [facility] POCT URINALYSIS W/O 2023-05-31 14:54:00 Lisa Warren [facility] SPECIFIC GRAVITY [facility] ASSIGNMENT OF BENEFITS 2023-05-31 14:31:07 Doctor Unassigned, No [facility] Name [facility] COMP. METABOLIC PANEL 2021-06-03 13:23:00 Leandra Huizar [facility] ([id number]) Medical Branch ACETAMINOPHEN 2021-06-03 13:23:00 Gaye golden [facility] AMMONIA, PLASMA 2021-06-03 11:30:00 Gaye [facility] LIPID PANEL 2021-06-03 09:51:00 Gaye golden [facility] ([id number])(TOTAL [facility] CHOLESTEROL, TRIGLYCERIDES, HDL) ACUTE CARE VENOUS BLOOD 2021-06-03 07:57:00 Leandra Huizar [facility] GAS [facility] LACTIC ACID WHOLE BLOOD 2021-06-03 07:57:00 Leandra Huizar [facility] PHOSPHORUS 2021-06-03 07:52:00 Leandra Huizar [facility] MAGNESIUM 2021-06-03 07:52:00 Leandra Huizar [facility] THYROID STIMULATING 2021-06-03 07:52:00 Leandra Huizar [facility] HORMONE [facility] BASIC METABOLIC PANEL 2021-06-03 07:52:00 Leandra Huizar [facility] (NA, K, CL, CO2, [facility] GLUCOSE, BUN, CREATININE, CA) SALICYLATE 2021-06-03 07:52:00 Leandra Huizar [facility] PROTHROMBIN TIME / INR 2021-06-03 07:52:00 Leandra Huizar [facility] XR CHEST 1 VW 2021-06-02 23:49:45 Vero Saldana [facility] POCT TEST 2021-06-02 23:20:00 Vero Saldana [facility] COVID-19 (ID NOW RAPID 2021-06-02 23:10:00 Vero Saldana [facility] TESTING) [facility] LIPASE 2021-06-02 23:07:00 Vero Saldana [facility] COMP. METABOLIC PANEL 2021-06-02 23:07:00 Vero Saldana [facility] ([id number]) [facility] SALICYLATE 2021-06-02 23:07:00 Vero Saldana [facility] ETHANOL 2021-06-02 23:07:00 Vero Saldana [facility] URINE DRUG (IMMUNOASSAY) 2021-06-02 23:07:00 Vero Saldana [facility] SCREEN CBC WITH DIFF 2021-06-02 23:07:00 Vero Saldana [facility] GLYCOSYLATED HEMOGLOBIN 2021-06-02 23:07:00 Leandra Huizar [facility] (A1C) [facility] URINALYSIS 2021-06-02 23:07:00 Vero Saldana [facility] Encounters Start End Encounter Admission Attending Care Care Encounter Source Date/Time Date/Time Type Type Clinicians Facility Department ID 2021-09-19 Emergency [facility] [id number] Univers 08:33:01 [facility] 2023-06-14 2023-06-14 Outpatient P [facility] [id number] Univers 08:45:00 08:45:00 [facility] 2023-06-13 2023-06-13 Nurse WALDO Suarez [id number] Univers 00:00:00 00:00:00 Triage Eun VIDYA 350.1.13.10 it y of HOSPITAL 4.2.7.2.686 [place] [id number] [facility] [address] [place] 2023-06-12 2023-06-12 Patient Doctor [facility] [id number] Univers 00:00:00 00:00:00 Secure Msg Unassigned, DESK INTERVIEWER 350.1.13.10 ity of [place] [facility] 4.2.7.2.686 [place] as MATERNAL [id number] [facility] & CHILD [address] [place] [address] 2023-05-31 2023-05-31 Outpatient R KAYLA [facility] [id number] Univers 10:00:00 10:55:51 LISA noonan o f [facility] 2023-05-31 2023-05-31 [facility] [id number] Univers 10:00:00 10:55:51 Lisa Grover DESK INTERVIEWER 350.1.13.10 ity of Visit [facility] 4.2.7.2.686 [place] MATERNAL [id number] [facility] & [address] 2023-05-31 2023-05-31 Orders Doctor WALDO [id number] Univers 00:00:00 00:00:00 Only Unassigned, VIDYA 350.1.13.10 ity of [place] [facility] 4.2.7.2.686 [place] as [id number] [facility] 009 Branch 2021-06-02 2021-06-03 Emergency Vero Saldana S [facility] 1.2.840.1 [id number] Univers 17:41:00 12:55:00 Leandra Huizar 350.1.13.10 ity of [place] [id number] [facility] 081 Branch 2018-07-08 2018-07-08 Outpatient [facility] 15 Common 10:30:00 10:30:00 [facility] Results Test Description Test Time Test Comments Results Result Comments Source POCT URINALYSIS W/O SPECIFIC GRAVITY 2023-05-31 14:55:00 Test Item Value Reference Range Interpretation Comme nts POCT PH U (test code = 3254) 7 mg/dl 5-8 POCT U LEUK EST (test code = 3263) trace Negative - Negative POCT U NIT (test code = 3262) neg Negative - Negative POCT U PROT (test code = 3259) trace Negative - Negative POCT U GLU (test code = 3256) neg Negative - Negative POCT U KETONE (test code = 3258) neg Negative - Negative POCT U BLD (test code = 3257) neg Negative - Negative [facility] [id number] 14:54:00 Test Item Value Reference Range Interpretation Comments POCT PREG (test code = 1605) Positive On board controls acceptable with C Yes Line (test code = 3574) POCT PREG LOT # (test code = 3575) POCT PREG TEST DATE (test code = 3576) [facility]EN2021-07-16 14:22:06 Test Item Value Reference Range Interpretation Comments ACETAMINOP (test code = <10.0 10.0-30.0 L 5593908385) HORTENCIA (test code = HORTENCIA) Toxic: Greater than 200 ug/mL @ 4 hour post ingestion or greater than 50 ug/mL @ 12 hour post ingestion Lab Interpretation (test Abnormal code = 43908-3) [facility]. MET[facility]OLIC PANEL ([id number])2021-06-03 14:21:45 Test Item Value Reference Range Interpretation Comments NA (test code = 136 mmol/L 135-145 8502941796) K (test code = 3.7 mmol/L 3.5-5.0 7335324377) CL (test code = 110 mmol/L 98-108 H 4526444450) CO2 TOTAL (test code = 19 mmol/L 23-31 L 4394032423) AGAP (test code = 2-16 7930748843) BUN (test code = 8 mg/dL 7-23 1629160914) GLUCOSE (test code = 132 mg/dL 70-110 H 0143273862) CREATININE (test code = 0.44 mg/dL 0.50-1.04 L 5883795637) TOTAL BILI (test code = 0.5 mg/dL 0.1-1.5 7652601856) CALCIUM (test code = 8.6 mg/dL 8.6-10.6 1920451872) T PROTEIN (test code = 6.4 g/dL 6.3-8.2 2184593941) ALBUMIN (test code = 3.4 g/dL 3.5-5.0 L 7558359833) ALK PHOS (test code = 45 U/L 34-122 7905736184) ALTv (test code = 13 U/L 5-35 1742-6) AST(SGOT) (test code = 24 U/L 13-40 8728094617) eGFR (test code = mL/min/1.73m2 3460709945) HORTENCIA (test code = HORTENCIA) Association of [...] tests). Lab Interpretation Abnormal (test code = 02942-4) [facility] CenterAMMONIA, [id number] 12:23:13 Test Item Value Reference Range Interpretation Comments AMMONIA (test code = 6157453369) <9 9-33 L Lab Interpretation (test code = Abnormal 19524-8) [facility] CenterLIPID PANEL ([id number])(TOTAL CHOLESTEROL, TRIGLYCERIDES, HDL)2021-06-03 10:46:29 Test Item Value Reference Range Interpretation Comments CHOL (test code = 72 mg/dL 120-200 L 1242871088) HDL (test code = 31 mg/dL >50 L 6348109937) HDLC RATIO (test code = See_Comment [Au tomated message] 7689523621) The system [employer] generated this result transmitted ref erence range: <=4.5. T he reference range was not used to int erpret this result as normal/abnormal . TRIG (test code = 28 mg/dL 30-170 L 3961567723) LDL CHOL (test code = 35 mg/dL See_Comment [Auto mated message] 44474-6) The system [employer] generated this result transmitted ref erence range: <=160. T he reference range was not used to int erpret this result as normal/abnormal . VLDL (test code = 6 mg/dL 5-60 5862503666) Lab Interpretation (test Abnormal code = 87306-7) [facility] CenterTHYROID STIMULATING [id number] 10:19:36 Test Item Value Reference Range Interpretation Comments TSH (test code = See_Comment [Automated message] 0436483210) The system [employer] generated this result transmitted ref erence range: 0.45 - 4 .70 mIU/L. The refe rence range was not u sed to interpret this result as normal/abnor mal. Lab Interpretation (test Normal code = 09538-6) [facility] CenterMAGNESIUM2021-07-16 09:48:34 Test Item Value Reference Range Interpretation Comments MAGNESIUM (test code = 0966987257) 1.9 mg/dL 1.7-2.4 Lab Interpretation (test code = Normal 25004-9) [facility] CenterPHOSPHORUS2021-07-16 09:48:33 Test Item Value Reference Range Interpretation Comments PHOSPHORUS (test code = 6603028122) 3.8 mg/dL 2.5-5.0 Lab Interpretation (test code = Normal 56664-9) [facility] CenterPROTHROMBIN TIME / [id number] 09:16:27 Test Item Value Reference Range Interpretation Comments PROTIME PATIENT (test See_Comment [Auto mated message] code = 5964-2) The system [employer] generated this result transmitted ref erence range: 12.0 - 1 4.7 Seconds. The re ference range was not u sed to interpret this result as normal/abnor mal. INR (test code = 6301-6) Nor mal INR <1.1; Warfarin Therap eutic range 2.0 to 3. 0 or 2.5 to 3.5, dep ending upon the indica tions. Lab Interpretation (test Normal code = 63957-2) [facility] CenterSALICYLATE2021-07-16 08:54:06 Test Item Value Reference Range Interpretation Comments SALICYLATE (test code <10 mg/L = 8857848881) HORTENCIA (test code = HORTENCIA) Therapeutic Range: ? Analgesic and Antipyretic Use ? 20-100 mg/L ? ? Anti-Inflammatory Use ? 100-250 mg/L Toxic Range: ? Greater than 300 mg/L [facility] CenterACETAMINOPHEN2021-07-16 08:52:24 Test Item Value Reference Range Interpretation Comments ACETAMINOP (test code = 13.0 ug/mL 10.0-30.0 5325739280) HORTENCIA (test code = HORTENCIA) Toxic: Greater than 200 ug/mL @ 4 hour post ingestion or greater than 50 ug/mL @ 12 hour post ingestion Lab Interpretation (test Normal code = 25856-3) [facility] CenterBASI METABOLIC PANEL (NA, K, CL, CO2, GLUCOSE, BUN, CREATININE, CA)2021-06-03 08:51:44 Test Item Value Reference Range Interpretation Comments NA (test code = 138 mmol/L 135-145 1250415653) K (test code = 4.1 mmol/L 3.5-5.0 8790631117) CL (test code = 111 mmol/L 98-108 H 5434482890) CO2 TOTAL (test code = 20 mmol/L 23-31 L 6774698088) AGAP (test code = 2-16 4206442054) BUN (test code = 12 mg/dL 7-23 8718077511) GLUCOSE (test code = 106 mg/dL 70-110 3447420872) CREATININE (test code = 0.50 mg/dL 0.50-1.04 6542236464) CALCIUM (test code = 8.9 mg/dL 8.6-10.6 0630477178) eGFR (test code = mL/min/1.73m2 2900222083) HORTENCIA (test code = HORTENCIA) Association of [...] tests). Lab Interpretation Abnormal (test code = 98732-1) [facility] CenterGLYCOSYLATED HEMOGLOBIN (A1C)2021-06-03 08:51:34 Test Item Value Reference Range Interpretation Comments HGB A1C (test code = 5.0 % 4.0-5.7 4548-4) HORTENCIA (test code = HORTENCIA) Reference RangesNormal: <5.7%Prediabetes: 5.7 - 6.4%Diabetes: > 6.5% Lab Interpretation (test Normal code = 51626-7) [facility] CenterAC[facility]ARE VENOUS BLOOD [id number] 08:09:06 Test Item Value Reference Range Interpretation Comments PH (test code = 7.32-7.42 0956130019) PCO2 ZAHRAA (test code = See_Comment L [Auto mated message] 6109374950) The system [employer] generated this result transmitted ref erence range: 41 - 51 mmHg. The reference r aby was not used to interpret this result as normal/abnor mal. PO2 ZAHRAA (test code = See_Comment HH [Autom ated message] 6001858371) The system [employer] generated this result transmitted ref erence range: 25 - 40 mmHg. The reference r aby was not used to interpret this result as normal/abnor mal. HCO3 ZAHRAA (test code = See_Comment L [Auto mated message] 4093288797) The system [employer] generated this result transmitted ref erence range: 24 - 28 mEq/L. The reference r aby was not used to interpret this result as normal/abnor mal. AC VBE(BEAKER) (test mEq/L code = 0132206540) Lab Interpretation (test Abnormal code = 45427-5) [facility] CenterLactic Acid Whole [id number] 08:08:21 Test Item Value Reference Range Interpretation Comments LACTIC ACID (test code = 0.74 mmol/L 0.50-2.20 6915060712) Lab Interpretation (test code = Normal 15231-5) [facility] CenterXR CHEST 1 [id number] 00:59:36 No acute cardiopulmonary process. Preliminary Report [...] have reviewed this study and agree withtheabove report.[facility] CenterACETAMINOPHEN2021-07-16 00:30:38 Test Item Value Reference Range Interpretation Comments ACETAMINOP (test code = 105.0 ug/mL 10.0-30.0 H 5084174407) HORTENCIA (test code = HORTENCIA) Toxic: Greater than 200 ug/mL @ 4 hour post ingestion or greater than 50 ug/mL @ 12 hour post ingestion Lab Interpretation (test Abnormal code = 79796-6) [facility] CenterURINE DRUG (IMMUNOASSAY) - COMPREHENSIVE DRUG [id number] 00:26:28 Test Item Value Reference Range Interpretation Comments AMPHET (test code = Negative Negative 4627743159) JOSY U (test code = Negative Negative 8366715692) BENZO U (test code = Negative Negative 8477499503) Cocaine Metabolite (test Negative Negative code = 2501959355) METHADONE (test code = Negative Negative 3540436281) OPIATES (test code = Negative Negative 7756254292) PCP (test code = Negative Negative 8853010037) THC (test code = Presumptive Positive Negative A 9910115830) HORTENCIA (test code = HORTENCIA) Urine Drug [...] testing). Lab Interpretation (test Abnormal code = 30226-6) [facility] CenterSALICYLATE2021-07-16 00:20:36 Test Item Value Reference Range Interpretation Comments SALICYLATE (test code <10 mg/L = 4967253587) HORTENCIA (test code = HORTENCIA) Therapeutic Range: ? Analgesic and Antipyretic Use ? 20-100 mg/L ? ? Anti-Inflammatory Use ? 100-250 mg/L Toxic Range: ? Greater than 300 mg/L [facility] CenterETHANOL2021-07-16 00:09:42 Test Item Value Reference Range Interpretation Comments ALCOHOL (test code = <10 mg/dL 0944282230) HORTENCIA (test code = HORTENCIA) <10 Kewoksuc78-619 Toxic>100 Depression of COMPENSATION ADVISOR>400 Fatalities Reported [facility] CenterCOM. METABOLIC PANEL ([id number])2021-06-03 00:08:51 Test Item Value Reference Range Interpretation Comments NA (test code = 143 mmol/L 135-145 0474842983) K (test code = 3.7 mmol/L 3.5-5.0 7473575274) CL (test code = 107 mmol/L 98-108 8250960575) CO2 TOTAL (test code = 23 mmol/L 23-31 1071530591) AGAP (test code = 2-16 3460949087) BUN (test code = 14 mg/dL 7-23 9607856963) GLUCOSE (test code = 93 mg/dL 70-110 6698237589) CREATININE (test code = 0.64 mg/dL 0.50-1.04 8575824004) TOTAL BILI (test code = 0.4 mg/dL 0.1-1.1 2528607953) CALCIUM (test code = 9.7 mg/dL 8.6-10.6 4039769362) T PROTEIN (test code = 8.8 g/dL 6.3-8.2 H 3425949416) ALBUMIN (test code = 5.2 g/dL 3.5-5.0 H 0956718104) ALK PHOS (test code = 78 U/L 34-122 4647044447) ALTv (test code = 15 U/L 1742-6) AST(SGOT) (test code = 27 U/L 13-40 1516254695) eGFR (test code = mL/min/1.73m2 6973428441) HORTENCIA (test code = HORTENCIA) Association of [...] tests). Lab Interpretation Abnormal (test code = 22065-2) [facility] CenterLIPASE2021-07-16 00:08:51 Test Item Value Reference Range Interpretation Comments LIPASE (test code = 9616779135) 58 U/L 0-220 Lab Interpretation (test code = Normal 38677-3) [facility] CenterURINALYSIS2021-07-16 00:07:31 Test Item Value Reference Range Interpretation Comments APPEARANCE (test code = Cloudy Clear A 3893241055) COLOR (test code = Yellow Yellow 1145583662) PH (test code = 4.8-8.0 2586145996) SP GRAVITY (test code = 1.003-1.030 H 1598527863) GLU U QUAL (test code = Normal Normal 8172047523) BLOOD (test code = Negative Negative 7308703289) KETONES (test code = Negative Negative 3581448166) PROTEIN (test code = 30 mg/dL Negative A 2887-8) UROBILIN (test code = Normal Normal 2088477635) BILIRUBIN (test code = Negative Negative 0899740253) NITRITE (test code = Negative Negative 1340944236) LEUK GIOVANNY (test code = Negative Negative 7341405404) RBC/HPF (test code = See_Comment H [Autom ated message] 9053731618) The system [employer] generated this result transmitted ref erence range: 0 - 3 HP F. The reference range was not used to int erpret this result as normal/abnormal . WBC/HPF (test code = See_Comment [Autom ated message] 5458970415) The system [employer] generated this result transmitted ref erence range: 0 - 5 HP F. The reference range was not used to int erpret this result as normal/abnormal . BACTERIA (test code = Few Negative A 4342432645) MUCOUS (test code = Marked Negative LPF A 2755949097) SQ EPITH (test code = HPF 1564124931) CA OXALATE (test code = See_Comment H [Au tomated message] 1869857121) The system [employer] generated this result transmitted ref erence range: <=1 HPF. The reference range was not used to int erpret this result as normal/abnormal . Lab Interpretation (test Abnormal code = 58783-6) [facility] [id number] 23:56:26 Test Item Value Reference Range Interpretation Comments WBC (test code = See_Comment [Automated 8990-2) message] The sy stem which generated this result transmitted reference range : 4.50 - 13.50 10*3/?L. The reference range was not used to interpret this result as normal/abnormal . RBC (test code = See_Comment [Automated 159-8) message] The sy stem which generated this [...] RDW-SD (test code = 45.3 fL 38.5-49.0 45093-6) RDW-CV (test code = 12.8 % 11.5-14.0 788-0) PLT (test code = See_Comment [Automated 777-3) message] The sy stem which generated this result transmitted reference range : 135 - 361 10*3/ ?L. The reference r aby was not used to interpret this result as normal/abnormal . MPV (test code = 11.1 fL 9.4-13.3 02245-9) NRBC/100 WBC (test See_Comment [Automat ed code = 4067184731) message] The system which generated this result transmitted reference range : 0.0 - 10.0 /100 WBCs. The refer ence range was not u sed to interpret th is result as normal/abnormal . NRBC x10^3 (test code <0.01 See_Comment [Auto mated = 3093657516) message] The s ystem which generated this result transmitted reference range : 10*3/?L. The reference range was not used to interpret this result as normal/abnormal . GRAN MAT (NEUT) % 62.6 % (test code = 770-8) IMM GRAN % (test code 0.30 % = 9965114006) LYMPH % (test code = 26.0 % 736-9) MONO % (test code = 9.6 % 5905-5) EOS % (test code = 0.9 % 713-8) BASO % (test code = 0.6 % 706-2) GRAN MAT x10^3(ANC) 4.36 10*3/uL 1.50-10.30 (test code = 8347548566) IMM GRAN x10^3 (test <0.03 0.00-0.06 code = 3128580037) LYMPH x10^3 (test code 1.81 10*3/uL 0.70-7.40 = 731-0) MONO x10^3 (test code 0.67 10*3/uL 0.00-0.50 H = 742-7) EOS x10^3 (test code = 0.06 10*3/uL 0.00-0.40 711-2) BASO x10^3 (test code 0.04 10*3/uL 0.00-0.10 = 704-7) Lab Interpretation Abnormal (test code = 14941-8) [facility]2021-06-02 23:40:07 Test Item Value Reference Range Interpretation Comments SARS-CoV-2 Rapid ID NOW Not Detected Not Detected (test code = 86479-9) HORTENCIA (test code = HORTENCIA) ID NOW COVID-19 Assay is an isothermal nucleic acid amplification test intended for the qualitative detection of nucleic acid from SARS-CoV-2 viral RNA in nasopharyngeal (STEM FRAZER) specimens. It is used under Emergency Use [...] indicated. Lab Interpretation Normal (test code = 25165-6) [id number] Test Item Value Reference Range Interpretation Comments POCT PREG (test code = 1605) negative On board controls acceptable with present C Line (test code = 3574) POCT PREG LOT # (test code = 3575) [id number] POCT PREG TEST DATE (test 11-18-2022 code = 3576) Lab Interpretation (test code = Normal 79858-5) [facility] Notes Date/Time Note Provider Source 2023-06-13 13:49:00-00:00 Formatting of this note migh t be different from the original. Eun Suarez RN [facility] Regardin wks , dizziness,light head ed, out of breath x 1 day ----- Message from Sweta Mustafa sent at 06/13/20 1:49 PM CDT ----- Amy Love is a 22 year old female Electronically signed by Eun Suarez RN at 0 06/13/2023 1:49 PM CDT 2023-06-13 13:49:00-00:00 Formatting of this note migh t be different from the original. [facility] Triage Assessment Last Clinic Visit: 05/31/23, [facility] brad Garvin visit Primary Symptom: shortness of breath Onset / Duration: today Location / Description: respiratory Pain / Severity: 0/10 Associated Symptoms: dizzy Fever / Method: denies Hydration: eating and drinki ng normally, about 2-3 16.9oz bottles of water and some lemonade, last void 30 min ago, denies hematuria or dysuria, denies n/v/d Treatment so far: rest Effect on ADL's: some Gestational Weeks: 15w 4d Rupture Membranes: denies Bleeding / Spotting / Pads per hour: denies Movement: NA Para / : EDC: 12/01/23 Pre-existing condition / Immunocompromised: NA Amy Love is a 22 year ol d female whose calling for advice with shortness of breath. Pt reports she was getting ready for work and became really dizzy. Pt reports was having "difficulty breathing" as well. Pt reports s/s lasted for a few minutes. Pt reports sat down and started feeling better. Pt reports she still is having some shortness of breath while resting. 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 Assessment and triage completed per protocol. Patient verbalizes understanding and agrees to follow plan of care. Pt reports will go to [facility] now. Pt had no furth er questions or concerns. Ca ll back advice given and pt verbalized understanding. Eun Suarez RN Reason for Disposition [1] MODERATE difficulty dagoberto athing (e.g., speaks in phrases, SOB even at rest, pulse 100-120) AND [2] NEW-onset or WORSE than normal Protocols used: Breathing [id number] Electronically signed by Eun Suarez RN at 0 06/13/2023 2:04 PM CDT
--- NOTE | 2023-06-13 15:18 | RAD REPORT ---
EXAM DESCRIPTION: RAD - Chest Single View - 06/13/2023 3:13 pm CLINICAL HISTORY: DYSPNEA Chest pain. COMPARISON: Chest Single View dated 07/09/2017; CHEST SINGLE VIEW dated 05/19/2008; CHEST PA AND LAT 2 VIEW dated 11/05/2004 FINDINGS: Portable technique limits examination quality. The lungs are grossly clear. The heart is normal in size. No displaced fractures. IMPRESSION: No acute intrathoracic process suspected.
[2023-06-13] MEDS ORDERED: NA CHLORIDE 0.9% 1,000 ML ONE (15:24)
[2023-06-13 15:53] LABS: Absolute Lymphocytes (CBC) 1.2 K/uL (0.7-4.9); Lymphocytes % 12.1 % (15.3-44.8); MCV 92.8 fL (80-100); MPV 8.7 fL (7.6-11.3); RBC Red Blood Cell Count 4.31 M/uL (3.86-4.86)
[2023-06-13 16:05] LABS: Specific Gravity 1.022 (1.005-1.030); Urine Bacteria <20 /HPF (<20); Urine Bilirubin NEGATIVE (Negative); Urine Blood Negative (Negative); Urine Clarity Extremely Turbid (Clear); Urine Color Light-Yellow (Yellow); Urine Crystals Unidentified Few /HPF (None Seen); Urine Glucose NEGATIVE (Negative); Urine Mucus Slight /HPF (None Seen); Urine Protein TRACE (Negative); Urine Urobilinogen Normal (Normal)
[2023-06-13 16:20] LABS: ALT/SGPT 18 U/L (13-56); AST/SGOT 17 U/L (15-37); Albumin 3.6 g/dL (3.4-5.0); Alkaline Phosphatase 53 U/L (45-117); BUN Blood Urea Nitrogen 8 mg/dL (7-18); Bicarbonate 22 mEq/L (21-32); Bilirubin Total 0.3 mg/dL (0.2-1.0); Glomerular Filtration Rate 133 ml/min (=/>90); Glucose Level 75 mg/dL (74-106); Potassium 3.4 mEq/L (3.5-5.1); Protein, Total 7.8 g/dL (6.4-8.2); Sodium Level 137 mEq/L (136-145)
[2023-06-13 16:30] LABS: Troponin High Sensitivity < 3.0 pg/mL (<58.9)
--- NOTE | 2023-06-13 18:25 | ER ---
Nurse's Notes [facility] Name: Amy Corral Age: 22 yrs Sex: Female : 2000 Arrival Date: 06/13/2023 Time: 14:31 Bed 7 Private MD: Diagnosis: Dyspnea;Syncope Near;Bipolar disorder, unspecified;12 weeks gestation of Presentation: 06/13 14:49 Chief complaint: Patient states: "I was just in the restroom getting ready and my chest aa5 started hurting and I started to feel like I was going to pass out". Pt reports she is approximately 15 weeks . 14:49 Acuity: LIAM 3 aa5 14:49 Coronavirus screen: At this time, the client does not indicate any symptoms associated aa5 with coronavirus-19. Ebola Screen: Patient denies travel to an Ebola-affected area in the 21 days before illness onset. Initial Sepsis Screen: Does the patient meet any 2 criteria? HR > 90 bpm. Does the patient have a suspected source of infection? No. Patient's initial sepsis screen is negative. Risk Assessment: Do you want to hurt yourself or someone else? Patient reports no desire to harm self or others. Onset of symptoms was June 13, 2023. 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 - Social history:: Smoking status: Patient denies any tobacco usage or history of. Screenin:32 [facility] ED Fall Risk Assessment (Adult) History of falling in the last 3 months, ko1 including since admission No falls in past 3 months (0 pts) Confusion or Disorientation No (0 pts) Intoxicated or Sedated No (0 pts) Impaired Gait No (0 pts) Mobility Assist Device Used No (0 pt) Altered Elimination No (0 pt) Score/Fall Risk Level 0 - 2 = Low Risk Oriented to surroundings, Maintained a safe environment, Educated pt \\T\\ family on fall prevention, incl call for assistance when getting out of bed, Assessed \\T\\ reinforced patient's understanding of fall precautions, Provided non-skid footwear, Hourly rounding (assess needs \\T\\ fall precautionary measures) done, Used ambulatory aids as needed (educated on \\T\\ assisted with). Abuse screen: Denies threats or abuse. Denies injuries from another. Nutritional screening: No deficits noted. Tuberculosis screening: No symptoms or risk factors identified. Assessment: 15:30 General: Appears in no apparent distress. comfortable, Behavior is calm, cooperative, ko1 appropriate for age. Pain: Denies pain. Neuro: Reports dizziness. Cardiovascular: Rhythm is sinus rhythm. Respiratory: Airway is patent Respiratory effort is even, unlabored, Breath sounds are clear bilaterally. GI: No deficits noted. : No deficits noted. EENT: No deficits noted. Derm: No deficits noted. Musculoskeletal: No deficits noted. Vital Signs: 14:49 BP 127 / 79; Pulse 106; Resp 15 S; Temp 97(TE); Pulse Ox 100% on R/A; Weight 52.16 kg aa5 (R); Height 5 ft. 3 in. (R); 15:30 BP 102 / 68; Pulse 102; Resp 18; Pulse Ox 100% ; ko1 18:32 BP 111 / 64; Pulse 101; Resp 18; Pulse Ox 99% ; ko1 14:49 Body Mass Index 20.37 (52.16 kg, 160.02 cm) aa5 Vitals: 15:40 Heart Tones 135. ko1 ED Course: 14:34 Patient arrived in ED. im 14:49 Arm band placed on. aa5 14:51 Triage completed. aa5 14:54 Franco Allen MD is Attending Physician. steffi 15:06 Alecia Navarrete, RN is Primary Nurse. ko1 15:08 Patient placed in an exam room, on a stretcher. ll1 15:15 Chest Single View XRAY In Process Unspecified. EDMS 15:27 Inserted saline lock: 20 gauge in right antecubital area, using aseptic technique. sm8 Blood collected. 15:27 Initial lab(s) drawn, by me, sent to lab. sm8 15:28 EKG done, by ED staff. sm8 15:35 Troponin HS Sent. ko1 15:35 D-Dimer Sent. ko1 15:35 Comprehensive Metabolic Panel Sent. ko1 15:35 CBC with Diff Sent. ko1 15:48 Urinalysis w/ reflexes Sent. ko1 18:28 Kevin Fournier MD is Referral Physician. [facility] 18:29 US Extremity Venous W Compression Alistair In Process Unspecified. EDMS 18:30 US OB Limited In Process Unspecified. EDMS 18:32 Patient has correct armband on for positive identification. Bed in low position. Call ko1 light in reach. Side rails up X 1. Provided Education on: na. 18:32 No provider procedures requiring assistance completed. IV discontinued, intact, ko1 bleeding controlled, No redness/swelling at site. Pressure dressing applied. Administered Medications: 15:35 Drug: NS 0.9% IV 1000 ml Route: IV; Rate: 1 bolus; Site: right antecubital; ko1 Medication: 18:32 VIS not applicable for this client. ko1 Outcome: 18:25 Discharge ordered by . [facility] 18:32 Discharged to home ambulatory, with family. ko1 18:32 Condition: stable 18:32 Discharge instructions given to patient, family, Instructed on discharge instructions, follow up and referral plans. Demonstrated understanding of instructions, follow-up care. 18:38 Patient left the ED. ko1 Signatures: Dispatcher [employer] Franco Palma MD MD cha Calderon, Audri, RN RN aa5 Manju Bello RN RN ll1 Alecia Navarrete RN RN ko1 Kaylene Niño Scarlett 8
--- NOTE | 2023-06-13 18:25 | EDPHYS ---
Physician Documentation [facility] Name: Amy Corral Age: 22 yrs Sex: Female : 2000 Arrival Date: 06/13/2023 Time: 14:31 Bed 7 Private MD: ED Physician Franco Allen HPI: 06/13 17:43 This 22 yrs old Female presents to ER via Ambulatory with complaints of steffi Dizziness, Shortness Of Breath, 15 weeks . 17:43 The patient presents with dizziness. 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 - Social history:: Smoking status: Patient denies any tobacco usage or history of. ROS: 17:45 Constitutional: Negative for fever, chills, and weight loss, Eyes: Negative for injury, steffi pain, redness, and discharge, ENT: Negative for injury, pain, and discharge, Neck: Negative for injury, pain, and swelling, Abdomen/GI: Negative for abdominal pain, nausea, vomiting, diarrhea, and constipation, Back: Negative for injury and pain, : Negative for injury, bleeding, discharge, and swelling, MS/Extremity: Negative for injury and deformity, Skin: Negative for injury, rash, and discoloration, Neuro: Negative for headache, weakness, numbness, tingling, and seizure, Psych: Negative for depression, anxiety, suicide ideation, homicidal ideation, and hallucinations, Allergy/Immunology: Negative for hives, rash, and allergies, Endocrine: Negative for neck swelling, polydipsia, polyuria, polyphagia, and marked weight changes, Hematologic/Lymphatic: Negative for swollen nodes, abnormal bleeding, and unusual bruising. 17:45 Cardiovascular: Positive for palpitations. 17:45 Respiratory: Positive for shortness of breath, at rest. 17:45 MS/extremity: Negative for acute changes. Exam: 17:45 Constitutional: This is a well developed, well nourished patient who is awake, alert, steffi and in no acute distress. Head/Face: Normocephalic, atraumatic. Eyes: Pupils equal round and reactive to light, extra-ocular motions intact. Lids and lashes normal. Conjunctiva and sclera are non-icteric and not injected. Cornea within normal limits. Periorbital areas with no swelling, redness, or edema. ENT: Nares patent. No nasal discharge, no septal abnormalities noted. Tympanic membranes are normal and external auditory canals are clear. Oropharynx with no redness, swelling, or masses, exudates, or evidence of obstruction, uvula midline. Mucous membranes moist. Neck: Trachea midline, no thyromegaly or masses palpated, and no cervical lymphadenopathy. Supple, full range of motion without nuchal rigidity, or vertebral point tenderness. No Meningismus. Chest/axilla: Normal chest wall appearance and motion. Nontender with no deformity. No lesions are appreciated. Respiratory: Lungs have equal breath sounds bilaterally, clear to auscultation and percussion. No rales, rhonchi or wheezes noted. No increased work of breathing, no retractions or nasal flaring. Abdomen/GI: Soft, non-tender, with normal bowel sounds. No distension or tympany. No guarding or rebound. No evidence of tenderness throughout. Back: No spinal tenderness. No costovertebral tenderness. Full range of motion. Skin: Warm, dry with normal turgor. Normal color with no rashes, no lesions, and no evidence of cellulitis. MS/ Extremity: Pulses equal, no cyanosis. Neurovascular intact. Full, normal range of motion. Neuro: Awake and alert, GCS 15, oriented to person, place, time, and situation. Cranial nerves II-XII grossly intact. Motor strength 5/5 in all extremities. Sensory grossly intact. Cerebellar exam normal. Normal gait. Psych: Awake, alert, with orientation to person, place and time. Behavior, mood, and affect are within normal limits. 17:45 Cardiovascular: Rate: tachycardic, actual rate is 106 bpm, Rhythm: regular, Pulses: no pulse deficits are appreciated, Heart sounds: normal, Edema: is not appreciated, JVD: is not appreciated. 17:45 ECG was reviewed by the Attending Physician. Vital Signs: 14:49 BP 127 / 79; Pulse 106; Resp 15 S; Temp 97(TE); Pulse Ox 100% on R/A; Weight 52.16 kg aa5 (R); Height 5 ft. 3 in. (R); 15:30 BP 102 / 68; Pulse 102; Resp 18; Pulse Ox 100% ; ko1 18:32 BP 111 / 64; Pulse 101; Resp 18; Pulse Ox 99% ; ko1 14:49 Body Mass Index 20.37 (52.16 kg, 160.02 cm) aa5 MDM: 14:54 Patient medically screened. [facility] 17:48 Differential diagnosis: Anxiety Reaction asthma, Bronchitis CHF exacerbation, Chronic steffi Obstructive Pulmonary Disease pneumonia, Pneumothorax pulmonary edema, Pulmonary Embolism reactive airway disease. Antibiotic administration: Not indicated. Differential diagnosis: cardiac arrhythmia, generalized weakness, hypovolemia, . Immunization status:. Data reviewed: vital signs, nurses notes, lab test result(s), EKG, radiologic studies, CT scan, doppler, plain films. Consideration of Admission/Observation Escalation of care including admission/observation considered. I considered the following discharge prescriptions or medication management in the emergency department Medications were administered in the Emergency Department. See MAR. Independent interpretation of the following test(s) in the Emergency Department EKG: See my EKG interpretation above. Test considered but Not performed: MRI: no mri chest. 18:25 ED course: PT EXPLAINED ALL RISK OF CT AND VQ, PT REFUSED BOTH , KNOWS CANT BE 100% steffi SURE NO PE EXIST, AND MORBIDITY EXIST. 06/13 14:56 Order name: CBC with Diff; Complete Time: 16:50 [facility] 06/13 14:56 Order name: Comprehensive Metabolic Panel; Complete Time: 16:50 [facility] 06/13 14:56 Order name: D-Dimer; Complete Time: 16:50 [facility] 06/13 14:56 Order name: Urinalysis w/ reflexes; Complete Time: 16:50 [facility] 06/13 14:56 Order name: Troponin HS; Complete Time: 16:50 [facility] 06/13 14:56 Order name: Chest Single View XRAY; Complete Time: 16:50 [facility] 06/13 16:50 Order name: US Extremity Venous W Compression Alistair [facility] 06/13 18:09 Order name: US OB Limited [facility] 06/13 14:56 Order name: EKG; Complete Time: 14:57 [facility] 06/13 14:56 Order name: FHT's; Complete Time: 15:35 [facility] 06/13 14:56 Order name: EKG - Nurse/Tech; Complete Time: 15:18 steffi EC:45 Rate is 91 beats/min. Rhythm is regular. QRS [place] is Normal. [place] interval is normal. QRS steffi interval is normal. QT interval is normal. No Q waves. T waves are Normal. No ST changes noted. Clinical impression: Normal ECG and No evidence of ischemia. Interpreted by me. Reviewed by me. Administered Medications: 15:35 Drug: NS 0.9% IV 1000 ml Route: IV; Rate: 1 bolus; Site: right antecubital; ko1 Disposition Summary: 06/13/23 18:25 Discharge Ordered Location: Home steffi Problem: new steffi Symptoms: have improved steffi Condition: Stable steffi Diagnosis - Dyspnea steffi - Syncope Near steffi - Bipolar disorder, unspecified steffi - 12 weeks gestation of steffi Followup: steffi - With: Private Physician - When: 2 - 3 days - Reason: Recheck today's complaints, Continuance of care, Re-evaluation by your physician Followup: steffi - With: Kevin Fournier MD - When: 2 - 3 days - Reason: Recheck today's complaints, Re-evaluation by your physician Discharge Instructions: - Discharge Summary Sheet steffi - Near-Syncope steffi - Care steffi - Weakness steffi - Near-Syncope, [id number] steffi - Second Trimester of steffi - Weakness, Urys-lu-Cihp steffi - Second Trimester of , Swzc-dh-Apuc steffi - Mixed Bipolar Disorder steffi Forms: - Medication Reconciliation Form steffi - Thank You Letter steffi - Antibiotic Education steffi - Prescription Opioid Use steffi - Patient Portal Instructions steffi Signatures: Dispatcher [employer] Franco Palma MD MD cha Calderon, Audri RN RN aa5 Alecia Navarrete RN RN ko1 Corrections: (The following items were deleted from the chart) 18:28 18:25 15 weeks gestation of steffi steffi
--- NOTE | 2023-06-13 18:51 | RAD REPORT ---
EXAM DESCRIPTION: US - Extrem Venous W Compress Alistair - 06/13/2023 6:27 pm CLINICAL HISTORY: PAIN Bilateral leg edema and swelling. COMPARISON: No comparisons TECHNIQUE: Real-time sonographic interrogation of the left and right lower extremity deep venous sys tems was performed. FINDINGS: Normal compressibility, flow augmentation, phasic flow and spontaneous flow is identified in both the left and right lower extremity deep venous systems. IMPRESSION: No sonographic evidence of left or right lower extremity deep venous thrombosis.
--- NOTE | 2023-06-13 19:02 | RAD REPORT ---
EXAM DESCRIPTION: US - OB Limited - 06/13/2023 6:28 pm CLINICAL HISTORY: ABD PAIN Early . COMPARISON: No comparisons FINDINGS: A single gestational sac is seen within the uterus. The shape of the sac is within normal limits for gestational age. Within the sac is a single pole with crown-rump length of 6.5 cm, c orrelating to estimated gestational age of 12 weeks 6 days. Estimated date of delivery is 12/20/2023. Heart rate is 162 BPM. Anterior placenta noted. The maternal adnexa and ovaries are within normal limits. Normal Doppler blood flow was demonstrated to both ovaries. IMPRESSION: Single live early intrauterine gestation with estimated gestational age of 12 weeks 6 da ys, OSCAR 12/20/2023. No acute findings seen.
[2023-06-13 19:18] VITALS: TEMP 97
[2023-06-13 19:22] VITALS: BP 111/64; O2SAT 99
--- NOTE | 2023-06-14 13:21 | EKG ---
Test Date: 2023-06-13 Test Time: 15:17:09 Soc Analyst: ANA MARIA MEASUREMENT RESULTS: Intervals: Rate: 91 MS: 140 QRSD: 80 QT: 342 QTc: 420 [place]: P: 75 MS: 140 QRS: 87 T: 42 INTERPRETIVE STATEMENTS: Normal sinus rhythm Normal ECG Compared to ECG 09/24/2018 10:25:38 No significant changes Electronically Signed On 06-14-23 13:19:33 CDT by Navid Rosas
== END 2023-06-13 18:38 | disposition home or self-care (01) ==
LOC: ER 14:31
DX: O99.511 Diseases of the respiratory system complicating pregnancy, first trimester (principal); R06.00 Dyspnea, unspecified; R55 Syncope and collapse; O99.341 Other mental disorders complicating pregnancy, first trimester; F31.9 Bipolar disorder, unspecified; Z3A.12 12 weeks gestation of pregnancy
CPT/HCPCS: 85025; 81001; 36415; 85379; 84484; 80053; 71045; 93970; 76815; J7030; 93005; 99284

== ENCOUNTER 2023-08-22 17:25 | Emergency (ER) | payer BC ==
--- OUTSIDE RECORDS SUMMARY | 2023-08-22 17:31 | XMS REPORT | Continuity of Care Document ---
:2000 Author Organization [facility] t Address [address] [facility] [address] [place] [address] Care Team Providers Name Role Phone MAY JERRY Primary Care Physician Unavailable LISA WARREN Attending Clinician Unavailable SAM SOLANO Attending Clinician Unavailable SAM SOLANO Attending Clinician Unavailable Ultrasound, Krzysztof-Mfm Attending Clinician Unavailable Sam Solano MD Attending Clinician Briana WHLisa OLSEN Attending Clinician [phone] FoMoe [place] Attending Clinician Provider, Trevon Temp Attending Clinician Unavailable REA ACEVES Attending Clinician Unavailable Rea Aceves MD Attending Clinician [phone] Eun Suarez RN Attending Clinician Unavailable Doctor Unassigned, [place] Attending Clinician Unavailable Vero Healy Attending Clinician Leandra Huizar MD Attending Clinician Leandra Huizar MD Admitting Clinician Payers Payer Name Policy Type Policy Number Effective Date Expiration Date S sadie [facility] [id number] 2017 [facility] 00:00:00 [place] [facility] [place] [id number] 2023 00:00:00 Problems Condition Condition Condition Status Onset Resolution Last Treating Co mments Source Name Details Category Date Date Treatment Clinician Date Candidiasi Candidiasi Disease Active U nivers s of s of 8-15 ity of vagina vagina 00:00: [place] during during 00 Medical Bran ch Vaginal Vaginal Disease Active Univers discharge discharge 8-14 ity of during during 00:00: [place] 00 [facility] in second in second Bran ch trimester trimester Genetic Genetic Disease Active Univers screening screening 8-14 ity of 00:00: 00 [facility] Supervisio Supervisio Disease Active U nivers n of n of 7-13 ity of high-risk high[place] [facility] Tylenol Tylenol Disease Active Univers toxicity, toxicity, 7-15 ity of und[place] ed intent, 00 Me dical initial initial Branch encounter encounter Family Family Disease Active Univers history of history of 6-03 it y of multiple multiple 00:00: [place] sclerosis sclerosis 00 [facility] Pharyngiti Pharyngiti Problem Active C ommon s, s, Spirit unspecifie unspecifie - [facility] d etiology d etiology [facility] Cough Cough Problem Active Common Spirit - [facility] Acute left Acute left Diagnosis Active Common ankle pain ankle pain Sp hank - [facility] Sprain of Sprain of Diagnosis Active C ommon anterior anterior Spirit talofibula talofibula - [facility] r ligament r ligament St of left of left [facility] ankle, ankle, Medical initial initial Center encounter encounter Allergies, Adverse Reactions, Alerts Allergy Allergy Status Severity Reaction(s) Onset Inactive Treating Comm ents Source Name Type Date Date Clinician NO KNOWN Drug Active Univers ALLERGIE Class ity of S [facility] Social History Social Habit Start Date Stop Date Quantity Comments Source ASSERTION 2023-03-26 University of 00:00:00 [facility] Gender identity Universit y of [facility] Sexual orientation Univer sity [facility] Exposure to Not sure University of SARS-CoV-2 (event) [facility] History of Social 2023-05-31 2023-05-31 Univers ity of function 00:00:00 00:00:00 [facility] Tobacco use and 2023-05-31 2023-05-31 Smokeless Universit y of exposure 00:00:00 00:00:00 tobacco non-user [facility] Alcohol intake 2023-05-31 2023-05-31 Ex-drinker [facility] 00:00:00 00:00:00 (finding) [facility] Sex Assigned At [birth year] Universit y of 00:00:00 00:00:00 [facility] Smoking Status Start Date Stop Date Source Never smoked tobacco [facility] Medications Ordered Filled Start Stop Current Ordering Indication Dosage Frequency Signature Comments Components Source Medication Medication Date Date Medication? Clinician (SIG) Name Name clotrimazol 2022- Yes [id number] 1{appli Insert 1 Univers e 1 % 07-03 9107 cator} Applicator ity o f vaginal 00:00: 04:59 into [place] cream 00 :00 vagina at [facility] bedtime [place] for 7 days. Yes [id number] 1{tbl} Take 1 U nivers nqz13-dnju- 7-13 tablet by ity of folic acid 00:00: mouth in [place] 29 mg iron- 00 the Medical 1 mg per morning. Branch tablet Yes [id number] 1{tbl} Take 1 U nivers iqn14-ldqi- 7-13 tablet by ity of folic acid 00:00: mouth in [place] 29 mg iron- 00 the Medical 1 mg per morning. Branch tablet Yes [id number] 1{tbl} Take 1 U nivers jmu90-jasc- 7-13 tablet by ity of folic acid 00:00: mouth in [place] 29 mg iron- 00 the Medical 1 mg per morning. Branch tablet Yes [id number] 1{tbl} Take 1 U nivers mcg99-zvpz- 7-13 tablet by ity of folic acid 00:00: mouth in [place] 29 mg iron- 00 the Medical 1 mg per morning. Branch tablet Yes [id number] 1{tbl} Take 1 U nivers saz26-giwx- 7-13 tablet by ity of folic acid 00:00: mouth in [place] 29 mg iron- 00 the Medical 1 mg per morning. Branch tablet Yes [id number] 1{tbl} Take 1 U nivers jij81-quwe- 7-13 tablet by ity of folic acid 00:00: mouth in [place] 29 mg iron- 00 the Medical 1 mg per morning. Branch tablet Yes [id number] 1{tbl} Take 1 U nivers isa16-pzbw- 7-13 tablet by ity of folic acid 00:00: mouth in [place] 29 mg iron- 00 the Medical 1 mg per morning. Branch tablet Yes [id number] 1{tbl} Take 1 U nivers xuc18-wwgy- 7-13 tablet by ity of folic acid 00:00: mouth in [place] 29 mg iron- 00 the Medical 1 mg per morning. Branch tablet Yes [id number] 1{tbl} Take 1 U nivers vbl15-eruv- 7-13 tablet by ity of folic acid 00:00: mouth in [place] 29 mg iron- 00 the Medical 1 mg per morning. Branch tablet Yes [id number] 1{tbl} Take 1 U nivers rfk05-nvzw- 7-13 tablet by ity of folic acid 00:00: mouth in [place] 29 mg iron- 00 the Medical 1 mg per morning. Branch tablet Yes [id number] 1{tbl} Take 1 U nivers avw54-mynj- 7-13 tablet by ity of folic acid 00:00: mouth in [place] 29 mg iron- 00 the Medical 1 mg per morning. Branch tablet acetylcyste 2020- No 100mg/k 4,760 mg Univers ine -16 07-17 g (100 mg/kg ity of (ACETADOTE) [...] 0330, Until Discontinu ed, Routine NaCl 0.9% No 1000mL at 999 Uni vers (NS) bolus 06-03 mL/hr, ity of infusion 08:30: 07:51 1,000 mL, [place] as 1,000 mL 00 :00 IV Medical Piggyback, [place] ONCE, 1 dose, Sun06/03/21 at 0330, STAT ondansetron Yes 4mg 4 mg, Slow Univers (ZOFRAN 06-03 IV Push, ity of (PF)) 07:13: Q6HPRN, [place] injection 4 44 Starting Medi sheldon mg Sun [place] 06/03/21 at 0213, Until Discontinu ed, Routine, Nausea and Vomiting (N/V) ondansetron 2020- No 4mg 4 mg, Slow Univers (ZOFRAN 06-03 IV Push, ity of (PF)) 03:45: 02:40 [...] 1,000 mL 00 :00 IV Medical Infusion, [place] ONCE, 1 dose, Selam 06/02/21 at 1900, STAT sulfamethox 2020- No [id number] 1{tbl} Take 1 [facility] azole-trime 05-24 [id number] tablet by ity of thoprim 00:00: 00:00 mouth 2 [place] 800-160 mg 00 :00 (two) Medical per tablet times Branch daily. Vital Signs Vital Name Observation Time Observation Value Comments Source Systolic blood 2023-07-30 13:57:00 127 mm[Hg] Univer sity of pressure [place] [facility] Diastolic blood 2023-07-30 13:57:00 75 mm[Hg] Unive rsity of pressure [place] [facility] Heart rate 2023-07-30 13:57:00 97 /min Universi ty of [place] [facility] Body temperature 2023-07-30 13:57:00 36.39 Michelle Univ ersity of [place] [facility] Respiratory rate 2023-07-30 13:57:00 18 /min Univ ersity of [place] [facility] Body height 2023-07-30 13:57:00 162.6 cm Universi ty [facility] [place] [facility] Body weight 2023-07-30 13:57:00 61.598 kg Universi ty [facility] [place] [facility] BMI 2023-07-30 13:57:00 23.31 kg/m2 Universi ty of [place] [facility] Systolic blood 2023-07-02 13:52:00 118 mm[Hg] Univer sity of pressure [place] [facility] Diastolic blood 2023-07-02 13:52:00 76 mm[Hg] Unive rsity of pressure [place] [facility] Heart rate 2023-07-02 13:52:00 93 /min Universi ty [facility] [place] [facility] Body temperature 2023-07-02 13:52:00 36.44 Michelle Univ ersity [facility] [place] [facility] Respiratory rate 2023-07-02 13:52:00 18 /min Univ ersity of [place] [facility] Body height 2023-07-02 13:52:00 162.6 cm [facility]i ty [facility] [place] [facility] Body weight 2023-07-02 13:52:00 59.62 kg Universi ty [facility] [place] [facility] BMI 2023-07-02 13:52:00 22.56 kg/m2 [facility]i ty [facility] [place] [facility] Systolic blood 2023-05-31 14:50:00 115 mm[Hg] Univer sity of pressure [place] [facility] Diastolic blood 2023-05-31 14:50:00 72 mm[Hg] Unive rsity of pressure [place] [facility] Heart rate 2023-05-31 14:50:00 89 /min Universi ty [facility] [place] [facility] Body temperature 2023-05-31 14:50:00 36.44 Michelle Univ ers[facility] [place] [facility] Respiratory rate 2023-05-31 14:50:00 18 /min Univ ersity [facility] [place] [facility] Body height 2023-05-31 14:50:00 162.6 cm [facility] Body weight 2023-05-31 14:50:00 54.159 kg [facility] BMI 2023-05-31 14:50:00 20.49 kg/m2 [facility] Systolic blood 2021-06-03 16:00:00 105 mm[Hg] Univer sity of pressure [facility] Diastolic blood 2021-06-03 16:00:00 72 mm[Hg] Unive rsity of [facility] Heart rate 2021-06-03 16:00:00 69 /min [facility] Body temperature 2021-06-03 16:00:00 36.17 Michelle [facility] Respiratory rate 2021-06-03 16:00:00 18 /min [facility] Oxygen saturation in 2021-06-03 16:00:00 99 /min [facility] Arterial blood by [facility] Pulse oximetry Branch Body height 2021-06-02 22:38:00 162.6 cm [facility] Body weight 2021-06-02 22:38:00 47.628 kg [facility] BMI 2021-06-02 22:38:00 18.02 kg/m2 [facility] Procedures Procedure Date / Time Performing Clinician Source Performed SECOND AND THIRD 2023-08-02 15:49:00 Lisa Warren [facility] TRIMESTER ULTRASOUND Medical [facility] POCT URINALYSIS 2023-07-02 15:06:00 Lisa Warren [facility] FIRST TRIMESTER 2023-06-14 14:32:00 Lisa Warren [facility] POCT TEST 2023-05-31 14:54:00 Lisa Warren [facility] POCT URINALYSIS W/O 2023-05-31 14:54:[address] [facility] SPECIFIC GRAVITY [facility] ASSIGNMENT OF BENEFITS 2023-05-31 14:31:07 Doctor Unassigned, No [facility] COMP. METABOLIC PANEL 2021-06-03 13:23:00 Leandra Huizar [facility] ([id number]) Medical Branch ACETAMINOPHEN 2021-06-03 13:23:00 aGye golden [facility] AMMONIA, PLASMA 2021-06-03 11:30:00 Gaye [facility] LIPID PANEL 2021-06-03 09:51:00 Gaye [facility] ([id number])(TOTAL [facility] CHOLESTEROL, TRIGLYCERIDES, HDL) ACUTE CARE VENOUS BLOOD 2021-06-03 07:57:00 Gaye golden [facility] GAS [facility] LACTIC ACID WHOLE BLOOD 2021-06-03 07:57:00 Gaye [facility] PHOSPHORUS 2021-06-03 07:52:00 Gaye [facility] MAGNESIUM 2021-06-03 07:52:00 Gaye [facility] THYROID STIMULATING 2021-06-03 07:52:00 Gaye golden [facility] HORMONE [facility] BASIC METABOLIC PANEL 2021-06-03 07:52:00 Gaye golden [facility] (NA, K, CL, CO2, Medical [place] GLUCOSE, BUN, CREATININE, CA) SALICYLATE 2021-06-03 07:52:00 Gaye golden [facility] PROTHROMBIN TIME / INR 2021-06-03 07:52:00 Gaye golden [facility] XR CHEST 1 VW 2021-06-02 23:49:45 Vero Saldana [facility] POCT TEST 2021-06-02 23:20:00 Vero Saldana [facility] COVID-19 (ID NOW RAPID 2021-06-02 23:10:00 Vero Saldana [facility] TESTING) Medical Branch LIPASE 2021-06-02 23:07:00 Vero Saldana [facility] COMP. METABOLIC PANEL 2021-06-02 23:07:00 Vero Saldana [facility] ([id number]) Medical Branch SALICYLATE 2021-06-02 23:07:00 Vero Saldana [facility] ETHANOL 2021-06-02 23:07:00 Vero Saldana [facility] URINE DRUG (IMMUNOASSAY) 2021-06-02 23:07:00 Vero Saldana [facility] SCREEN CBC WITH DIFF 2021-06-02 23:07:00 Vero Saldana [facility] GLYCOSYLATED HEMOGLOBIN 2021-06-02 23:07:00 Leandra Huizar [facility] (A1C) [facility] URINALYSIS 2021-06-02 23:07:00 Vero Saldana [facility] Encounters Start End Encounter Admission Attending Care Care Encounter Source Date/Time Date/Time Type Type Clinicians Facility Department ID 2021-09-19 Emergency [facility] [id number] [facility] 08:33:01 [facility] 2023-08-02 2023-08-02 Outpatient P SAM SOLANO [facility] [id number] [facility] 10:00:00 10:59:59 SAM SOLANO [facility] 2023-08-02 2023-08-02 Electronics Maintenance Technician Ultrasound, [facility] 1.2 .840.114 [id number] Univers 10:00:00 10:59:59 Visit Sam Solano SNOW MAKER 350.1.13.10 ity of [facility] 4.2.7.2.686 [place] as MATERNAL [id number] Med ical & CHILD 369 [facility] 2023-08-02 2023-08-02 Abstract Briana [facility] 1.2.840.114 [id number] Univers 00:00:00 00:00:00 Lisa Grover SNOW MAKER 350.1.13.10 ity of [facility] 4.2.7.2.686 [place] as MATERNAL [id number] [facility] & CHILD [address] [place] [address] 2023-07-30 2023-07-30 Outpatient R BRIANA [facility] [id number] Univers 09:00:00 09:06:58 LISA noonan [facility] 2023-07-30 2023-07-30 [facility] [id number] Univers 09:00:00 09:06:58 Lisa C SNOW MAKER 350.1.13.10 ity of Visit REGIONAL 4.2.7.2.686 [place] as MATERNAL [id number] [facility] ical & CHILD [address] [place] [address] 2023-07-03 2023-07-03 Telephone FomimaMoe [facility] 1.2.840.114 [id number] Univers 00:00:00 00:00:00 SNOW MAKER 350.1.13.10 it y of REGIONAL 4.2.7.2.686 [place] MATERNAL [id number] [facility] ical & CHILD 124 [facility] 2023-07-02 2023-07-02 Outpatient R BRIANA [facility] [id number] Univers 09:00:00 09:42:54 LISA ity o f [facility] 2023-07-02 2023-07-02 Routine Provider, Trevon [facility] 1 .2.840.114 [id number] Univers 09:00:00 09:42:54 Akinsipe, Lisa C SNOW MAKER 350.1.13 .10 ity of Visit REGIONAL 4.2.7.2.686 [place] as MATERNAL [id number] [facility] & CHILD [address] [place] [address] 2023-06-14 2023-06-14 Outpatient P YOLA [facility] [id number] Univers 09:00:00 09:24:07 REA ity [facility] 2023-06-14 2023-06-14 Electronics Maintenance Technician [facility] 1.2 .840.114 [id number] Univers 09:00:00 09:24:07 Visit Rea Aceves SNOW MAKER 350.1. 13.10 ity of REGIONAL 4.2.7.2.686 [place] as MATERNAL [id number] [facility] ical & CHILD [address] [facility] 2023-06-14 2023-06-14 Abstract Briana [facility] 1.2.840.114 [id number] Univers 00:00:00 00:00:00 Lisa C SNOW MAKER 350.1.13.10 ity of REGIONAL 4.2.7.2.686 [place] MATERNAL [id number] [facility] & CHILD [address] [place] [address] 2023-06-13 2023-06-13 Nurse WALDO Suarez 1.2.840.114 [id number] Univers 00:00:00 00:00:00 Triage Eun SHAHY 350.1.13.10 it y of HOSPITAL 4.2.7.2.686 [place] as [id number] [address] 2023-06-12 2023-06-12 Patient Doctor [facility] 1.2.840.114 [id number] Univers 00:00:00 00:00:00 Secure Msg Unassigned, SNOW MAKER 350.1.13.10 ity of [place] [facility] 4.2.7.2.686 [place] as MATERNAL [id number] [address] 2023-06-01 2023-06-01 Patient [facility] 1.2.383.040 [id number] Univers 00:00:00 00:00:00 Secure Msg Lisa C SNOW MAKER 350.1.13.10 ity of [facility] 4.2.7.2.686 [place] as MATERNAL [id number] [address] 2023-05-31 2023-05-31 Outpatient R BRIANA [facility] [id number] Univers 10:00:00 10:55:51 LISA ity o f [facility] 2023-05-31 2023-05-31 Initial [facility] [id number] Univers 10:00:00 10:55:51 Lisa C SNOW MAKER 350.1.13.10 ity of Visit REGIONAL 4.2.7.2.686 [place] MATERNAL [id number] [address] 2023-05-31 2023-05-31 Orders Doctor HAAS 1.2.840.114 [id number] Univers 00:00:00 00:00:00 Only Unassigned, VIDYA 350.1.13.10 ity of [place] [facility] 4.2.7.2.686 [facility] [id number] [facility] 009 Branch 2021-06-02 2021-06-03 Emergency Vero Saldana [facility] 1.2.840.1 [id number] [facility] 17:41:00 12:55:00 Leandra Huizar 350.1.13.10 ity [facility] 4.2.7.2.686 [facility] [id number] [facility] 081 Branch 2018-07-08 2018-07-08 Outpatient [facility] 15 Common 10:30:00 10:30:00 [facility] Results Test Description Test Time Test Comments Results Result Comments Source POCT URINALYSIS W SPECIFIC GRAVITY 2023-07-02 15:06:00 Test Item Value Reference Range Interpretation Comme nts POCT U SP GRAV (test code = 3255) . 1.005-1.025 POCT PH U (test code = 3254) . 5-8 POCT U LEUK EST (test code = 3263) . Negative - Negative POCT U NIT (test code = 3262) . Negative - Negative POCT U PROT (test code = 3259) . Negative - Negative POCT U GLU (test code = 3256) . Negative - Negative POCT U KETONE (test code = 3258) . Negative - Negative POCT U UROBILI (test code = 3260) . 0.2-1 POCT U BILI (test code = 3261) . Negative - Negative POCT U BLD (test code = 3257) . Negative - Negative POCT U COLOR (test code = 3266) . POCT U APPEAR (test code = 3267) [facility]/O SPECIFIC [id number] 14:55:00 Test Item Value Reference Range Interpretation Comments POCT PH U (test code = 3254) 7 mg/dl 5-8 POCT U LEUK EST (test code = trace Negative - Negative 3263) POCT U NIT (test code = 3262) neg Negative - Negative POCT U PROT (test code = 3259) trace Negative - Negative POCT U GLU (test code = 3256) neg Negative - Negative POCT U KETONE (test code = 3258) neg Negative - Negative POCT U BLD (test code = 3257) neg Negative - Negative [facility] [id number] 14:54:00 Test Item Value Reference Range Interpretation Comments POCT PREG (test code = 1605) Positive On board controls acceptable with C Yes Line (test code = 3574) POCT PREG LOT # (test code = 3575) POCT PREG TEST DATE (test code = 3576) [facility]2021-07-16 14:22:06 Test Item Value Reference Range Interpretation Comments ACETAMINOP (test code = <10.0 10.0-30.0 L [id number]) HORTENCIA (test code = HORTENCIA) Toxic: Greater than 200 ug/mL @ 4 hour post ingestion or greater than 50 ug/mL @ 12 hour post ingestion Lab Interpretation (test Abnormal code = 70763-5) [facility]. METABOLIC PANEL (53264)2021-06-03 14:21:45 Test Item Value Reference Range Interpretation Comments NA (test code = 136 mmol/L 135-145 5458061368) K (test code = 3.7 mmol/L 3.5-5.0 6522905804) CL (test code = 110 mmol/L 98-108 H 7376013859) CO2 TOTAL (test code = 19 mmol/L 23-31 L 1810298817) AGAP (test code = 2-16 5921355933) BUN (test code = 8 mg/dL 7-23 8746308183) GLUCOSE (test code = 132 mg/dL 70-110 H 0363995255) CREATININE (test code = 0.44 mg/dL 0.50-1.04 L 3663763232) TOTAL BILI (test code = 0.5 mg/dL 0.1-1.6 2631903851) CALCIUM (test code = 8.6 mg/dL 8.6-10.6 9878385956) T PROTEIN (test code = 6.4 g/dL 6.3-8.2 9199891330) ALBUMIN (test code = 3.4 g/dL 3.5-5.0 L 0650689180) ALK PHOS (test code = 45 U/L 34-122 7972272665) ALTv (test code = 13 U/L 5-35 1742-6) AST(SGOT) (test code = 24 U/L 13-40 3507694452) eGFR (test code = mL/min/1.73m2 4111869797) HORTENCIA (test code = HORTENCIA) Association of [...] tests). Lab Interpretation Abnormal (test code = 77669-0) [facility], [id number] 12:23:13 Test Item Value Reference Range Interpretation Comments AMMONIA (test code = 0199282725) <9 9-33 L Lab Interpretation (test code = Abnormal 23457-7) [facility] Irving[facility]IP[facility] PAN[facility] (42518)(TOTAL CHOLESTEROL, TRIGLYCERIDES, HDL)2021-06-03 10:46:29 Test Item Value Reference Range Interpretation Comments CHOL (test code = 72 mg/dL 120-200 L 9376083208) HDL (test code = 31 mg/dL >50 L 4979904626) HDLC RATIO (test code = See_Comment [Au tomated message] 9203322371) The system San[employer] generated this result transmitted ref erence range: <=4.5. T he reference range was not used to int erpret this result as normal/abnormal . TRIG (test code = 28 mg/dL 30-170 L 2262791616) LDL CHOL (test code = 35 mg/dL See_Comment [Auto mated message] 67176-2) The system [employer] generated this result transmitted ref erence range: <=160. T he reference range was not used to int erpret this result as normal/abnormal . VLDL (test code = 6 mg/dL 5-60 4393738890) Lab Interpretation (test Abnormal code = 41351-4) [facility] Irving[facility]YRO[facility] STIMULATING [id number] 10:19:36 Test Item Value Reference Range Interpretation Comments TSH (test code = See_Comment [Automated message] 0681617199) The system [employer] generated this result transmitted ref erence range: 0.45 - 4 .70 mIU/L. The refe rence range was not u sed to interpret this result as normal/abnor mal. Lab Interpretation (test Normal code = 41214-2) [facility]2021-07-16 09:48:34 Test Item Value Reference Range Interpretation Comments MAGNESIUM (test code = 1930918144) 1.9 mg/dL 1.7-2.4 Lab Interpretation (test code = Normal 82600-9) [facility]2021-07-16 09:48:33 Test Item Value Reference Range Interpretation Comments PHOSPHORUS (test code = 8822701185) 3.8 mg/dL 2.5-5.0 Lab Interpretation (test code = Normal 47399-2) [facility] IrvingPROTHROMBIN TIME / [id number] 09:16:27 Test Item Value Reference Range Interpretation Comments PROTIME PATIENT (test See_Comment [Auto mated message] code = 5964-2) The system [employer] [facility][note 3] generated this result transmitted ref erence range: 12.0 - 1 4.7 Seconds. The re ference range was not u sed to interpret this result as normal/abnor mal. INR (test code = 6301-6) Nor mal INR <1.1; Warfarin Therap eutic range 2.0 to 3. 0 or 2.5 to 3.5, dep ending upon the indica tions. Lab Interpretation (test Normal code = 96825-2) [facility] IrvingSAL[facility]ATE2021-07-16 08:54:06 Test Item Value Reference Range Interpretation Comments SALICYLATE (test code <10 mg/L = 5254448267) HORTENCIA (test code = HORTENCIA) Therapeutic Range: ? Analgesic and Antipyretic Use ? 20-100 mg/L ? ? Anti-Inflammatory Use ? 100-250 mg/L Toxic Range: ? Greater than 300 mg/L [facility]2021-07-16 08:52:24 Test Item Value Reference Range Interpretation Comments ACETAMINOP (test code = 13.0 ug/mL 10.0-30.0 5135838634) HORTENCIA (test code = HORTENCIA) Toxic: Greater than 200 ug/mL @ 4 hour post ingestion or greater than 50 ug/mL @ 12 hour post ingestion Lab Interpretation (test Normal code = 57230-3) [facility] (NA, K, CL, CO2, GLUCOSE, BUN, CREATININE, CA)2021-06-03 08:51:44 Test Item Value Reference Range Interpretation Comments NA (test code = 138 mmol/L 135-145 4184997488) K (test code = 4.1 mmol/L 3.5-5.0 3111077065) CL (test code = 111 mmol/L 98-108 H 6795572962) CO2 TOTAL (test code = 20 mmol/L 23-31 L 6494391527) AGAP (test code = 2-16 7199236648) BUN (test code = 12 mg/dL 7-23 3221884909) GLUCOSE (test code = 106 mg/dL 70-110 9601296617) CREATININE (test code = 0.50 mg/dL 0.50-1.04 9391378885) CALCIUM (test code = 8.9 mg/dL 8.6-10.6 6629993562) eGFR (test code = mL/min/1.73m2 8256871064) HORTENCIA (test code = HORTENCIA) Association of [...] tests). Lab Interpretation Abnormal (test code = 65101-4) [facility]EMOGLOBIN (A1C)2021-06-03 08:51:34 Test Item Value Reference Range Interpretation Comments HGB A1C (test code = 5.0 % 4.0-5.7 4548-4) HORTENCIA (test code = HORTENCIA) Reference RangesNormal: <5.7%Prediabetes: 5.7 - 6.4%Diabetes: > 6.5% Lab Interpretation (test Normal code = 24277-9) [facility] BLOOD [id number] 08:09:06 Test Item Value Reference Range Interpretation Comments PH (test code = 7.32-7.42 2377179308) PCO2 ZAHRAA (test code = See_Comment L [Auto mated message] 5546631843) The system Sanitors generated this result transmitted ref erence range: 41 - 51 mmHg. The reference r aby was not used to interpret this result as normal/abnor mal. PO2 ZAHRAA (test code = See_Comment HH [Autom ated message] 7286445181) The system Sanitors generated this result transmitted ref erence range: 25 - 40 mmHg. The reference r aby was not used to interpret this result as normal/abnor mal. HCO3 ZAHRAA (test code = See_Comment L [Auto mated message] 3890246439) The system Sanitors generated this result transmitted ref erence range: 24 - 28 mEq/L. The reference r aby was not used to interpret this result as normal/abnor mal. AC VBE(BEAKER) (test mEq/L code = 5233430351) Lab Interpretation (test Abnormal code = 57095-6) [facility] Whole [id number] 08:08:21 Test Item Value Reference Range Interpretation Comments LACTIC ACID (test code = 0.74 mmol/L 0.50-2.20 8628648713) Lab Interpretation (test code = Normal 55841-6) [facility] CHEST 1 [id number] 00:59:36 No acute cardiopulmonary process. Preliminary Report Dictated by Resident: Victor Manuel Leary MD., have reviewed this study and agree withthe above report.EXAM: XR CHEST 1 VW CLINICAL INDICATION: suicidal COMPARISON: None TECHNIQUE: Frontal and lateral views of the chest were obtained. FINDINGS: No focal consolidation, pleural effusion, or pneumothorax. The cardiac silhouette i s normal in size. No acute osseous abnormality. [facility], Radiant Results Inft User - 06/02/2021 8:00 PMCDT EXAM: XR CHEST 1 VWCLINICAL INDICATION: suicidal COMPARISON: NoneTECHNIQUE: Frontal and lateral views of the chest were obtained.FINDINGS:No focal consolidation, pleural effusion, or pneumothorax. The cardiac silhouette is normal in size.No acute osseous abnormality. IMPRESSIONNo acute cardiopulmonary process.Preliminary Report Dictatedby Resident: Victor Manuel Robles MD., have reviewed this study and agree withtheabove report.[facility]ETAMINOPHEN2021-07-16 00:30:38 Test Item Value Reference Range Interpretation Comments ACETAMINOP (test code = 105.0 ug/mL 10.0-30.0 H 6315597285) HORTENCIA (test code = HORTENCIA) Toxic: Greater than 200 ug/mL @ 4 hour post ingestion or greater than 50 ug/mL @ 12 hour post ingestion Lab Interpretation (test Abnormal code = 68769-1) [facility] (IMMUNOASSAY) - COMPREHENSIVE DRUG [id number] 00:26:28 Test Item Value Reference Range Interpretation Comments AMPHET (test code = Negative Negative 1017578949) JOSY U (test code = Negative Negative 2667103267) BENZO U (test code = Negative Negative 6288017066) Cocaine Metabolite (test Negative Negative code = 3093001511) METHADONE (test code = Negative Negative 6913617885) OPIATES (test code = Negative Negative 5276803928) PCP (test code = Negative Negative 4109657628) THC (test code = Presumptive Positive Negative A 9350056910) HORTENCIA (test code = HORTENCIA) Urine Drug [...] testing). Lab Interpretation (test Abnormal code = 84311-8) [facility]AL[facility]2021-07-16 00:20:36 Test Item Value Reference Range Interpretation Comments SALICYLATE (test code <10 mg/L = 3523283562) HORTENCIA (test code = HORTENCIA) Therapeutic Range: ? Analgesic and Antipyretic Use ? 20-100 mg/L ? ? Anti-Inflammatory Use ? 100-250 mg/L Toxic Range: ? Greater than 300 mg/L [facility]OL2021-07-16 00:09:42 Test Item Value Reference Range Interpretation Comments ALCOHOL (test code = <10 mg/dL 5712320653) HORTENCIA (test code = HORTENCIA) <10 Qkgdhzvy34-187 Toxic>100 Depression of CANDLE MOLDER HAND>400 Fatalities Reported [facility] METABOLIC PANEL (49729)2021-06-03 00:08:51 Test Item Value Reference Range Interpretation Comments NA (test code = 143 mmol/L 135-145 2391994497) K (test code = 3.7 mmol/L 3.5-5.0 8013654796) CL (test code = 107 mmol/L 98-108 9403856824) CO2 TOTAL (test code = 23 mmol/L 23-31 8790926351) AGAP (test code = 2-16 0470819604) BUN (test code = 14 mg/dL 7-23 9764197417) GLUCOSE (test code = 93 mg/dL 70-110 3835749817) CREATININE (test code = 0.64 mg/dL 0.50-1.04 0081170547) TOTAL BILI (test code = 0.4 mg/dL 0.1-1.9 3586679744) CALCIUM (test code = 9.7 mg/dL 8.6-10.6 8893962761) T PROTEIN (test code = 8.8 g/dL 6.3-8.2 H 5785925711) ALBUMIN (test code = 5.2 g/dL 3.5-5.0 H 4064526760) ALK PHOS (test code = 78 U/L 34-122 1242575468) ALTv (test code = 15 U/L 5-35 1742-6) AST(SGOT) (test code = 27 U/L 13-40 8279766388) eGFR (test code = mL/min/1.73m2 3238501014) HORTENCIA (test code = HORTENCIA) Association of [...] tests). Lab Interpretation Abnormal (test code = 90142-1) [facility]IP[facility]2021-07-16 00:08:51 Test Item Value Reference Range Interpretation Comments LIPASE (test code = 6306374613) 58 U/L 0-220 Lab Interpretation (test code = Normal 73649-7) [facility]2021-07-16 00:07:31 Test Item Value Reference Range Interpretation Comments APPEARANCE (test code = Cloudy Clear A 9202077129) COLOR (test code = Yellow Yellow 8808179474) PH (test code = 4.8-8.0 5078265503) SP GRAVITY (test code = 1.003-1.030 H 2910060165) GLU U QUAL (test code = Normal Normal 7092329215) BLOOD (test code = Negative Negative 4195554700) KETONES (test code = Negative Negative 5003505416) PROTEIN (test code = 30 mg/dL Negative A 2887-8) UROBILIN (test code = Normal Normal 3838963065) BILIRUBIN (test code = Negative Negative 3130786007) NITRITE (test code = Negative Negative 3646397440) LEUK GIOVANNY (test code = Negative Negative 8239709355) RBC/HPF (test code = See_Comment H [Autom ated message] 4434989609) The system Sanitors generated this result transmitted ref erence range: 0 - 3 HP F. The reference range was not used to int erpret this result as normal/abnormal . WBC/HPF (test code = See_Comment [Autom ated message] 7222634088) The system Sanitors generated this result transmitted ref erence range: 0 - 5 HP F. The reference range was not used to int erpret this result as normal/abnormal . BACTERIA (test code = Few Negative A 1743651305) MUCOUS (test code = Marked Negative LPF A 5897748051) SQ EPITH (test code = HPF 9938043347) CA OXALATE (test code = See_Comment H [Au tomated message] 2466095097) The system Sanitors generated this result transmitted ref erence range: <=1 HPF. The reference range was not used to int erpret this result as normal/abnormal . Lab Interpretation (test Abnormal code = 33906-3) [facility] WITH [id number] 23:56:26 Test Item Value Reference Range Interpretation [...] RDW-SD (test code = 45.3 fL 38.5-49.0 42839-4) RDW-CV (test code = 12.8 % 11.5-14.0 788-0) PLT (test code = See_Comment [Automated 777-3) message] The sy stem which generated this result transmitted reference range : 135 - 361 10*3/ ?L. The reference r aby was not used to interpret this result as normal/abnormal . MPV (test code = 11.1 fL 9.4-13.3 75127-6) NRBC/100 WBC (test See_Comment [Automat ed code = 0266396714) message] The system which generated this result transmitted reference range : 0.0 - 10.0 /100 WBCs. The refer ence range was not u sed to interpret th is result as normal/abnormal . NRBC x10^3 (test code <0.01 See_Comment [Auto mated = 3650355929) message] The s ystem which generated this result transmitted reference range : 10*3/?L. The reference range was not used to interpret this result as normal/abnormal . GRAN MAT (NEUT) % 62.6 % (test code = 770-8) IMM GRAN % (test code 0.30 % = 5759254865) LYMPH % (test code = 26.0 % 736-9) MONO % (test code = 9.6 % 5905-5) EOS % (test code = 0.9 % 713-8) BASO % (test code = 0.6 % 706-2) GRAN MAT x10^3(ANC) 4.36 10*3/uL 1.50-10.30 (test code = 6760375752) IMM GRAN x10^3 (test <0.03 0.00-0.06 code = 3461747864) LYMPH x10^3 (test code 1.81 10*3/uL 0.70-7.40 = 731-0) MONO x10^3 (test code 0.67 10*3/uL 0.00-0.50 H = 742-7) EOS x10^3 (test code = 0.06 10*3/uL 0.00-0.40 711-2) BASO x10^3 (test code 0.04 10*3/uL 0.00-0.10 = 704-7) Lab Interpretation Abnormal (test code = 94643-9) [facility] (ID NOW RAPID TESTING)2021-06-02 23:40:07 Test Item Value Reference Range Interpretation Comments SARS-CoV-2 Rapid ID NOW Not Detected Not Detected (test code = 64852-8) HORTENCIA (test code = HORTENCIA) ID NOW COVID-19 Assay is an isothermal nucleic acid amplification test intended for the qualitative detection of nucleic acid from SARS-CoV-2 viral RNA in nasopharyngeal ([employer]) specimens. It is used under Emergency Use [...] indicated. Lab Interpretation Normal (test code = 70080-0) [facility] Irving[facility] [id number] 23:20:00 Test Item Value Reference Range Interpretation Comments POCT PREG (test code = 1605) negative On board controls acceptable with present C Line (test code = 3574) POCT PREG LOT # (test code = 3575) [id number] POCT PREG TEST DATE (test 11-18-2022 code = 3576) Lab Interpretation (test code = Normal 38362-6) [facility]"
--- NOTE | 2023-08-22 18:06 | ER ---
Nurse's Notes [facility] Name: Amy Corral Age: 23 yrs Sex: Female : 2000 Arrival Date: 08/22/2023 Time: 17:25 Bed DIS3 Private MD: Diagnosis: Encounter for change or removal of nonsurgical wound dressing Presentation: 08/22 17:33 Chief complaint: Patient states: "my ring is stuck on my right middle finger". Pt is 23 aa5 weeks . 17:33 Coronavirus screen: At this time, the client does not indicate any symptoms associated aa5 with coronavirus-19. Ebola Screen: Patient denies travel to an Ebola-affected area in the 21 days before illness onset. Initial Sepsis Screen: Does the patient meet any 2 criteria? HR > 90 bpm. No. Patient's initial sepsis screen is negative. Does the patient have a suspected source of infection? No. Patient's initial sepsis screen is negative. Risk Assessment: Do you want to hurt yourself or someone else? Patient reports no desire to harm self or others. Onset of symptoms was August 22, 2023. 17:33 Method Of Arrival: Ambulatory aa5 17:33 Acuity: LIAM 4 aa5 Historical: - Allergies: 17:39 No Known Allergies; aa5 - PMHx: 17:39 scoliosis; aa5 - PSHx: 17:39 left knee; aa5 Vital Signs: 17:33 BP 129 / 67; Pulse 97; Resp 16 S; Temp 97.8(TE); Pulse Ox 97% on R/A; aa5 ED Course: 17:29 Patient arrived in ED. im 17:32 Valencia Tsang FNP-C is PHCP. snw 17:32 Franco Allen MD is Attending Physician. snw 17:33 Arm band placed on Patient placed in an internal wait recliner. aa5 17:39 Triage completed. aa5 Administered Medications: No medications were administered Outcome: 18:05 Discharge ordered by . snw 18:21 Patient left the ED. iw Signatures: Valencia Tsang FNP-C SUPERVISOR [employer]OTOC[employer]POSITION-CsnKenia Chu RN RN Minerva Isaac RN RN aa5 Kaylene Niño im Corrections: (The following items were deleted from the chart) 17:40 17:33 Chief complaint: Patient states: "my ring is stuck on my right middle finger". aa5aa5
--- NOTE | 2023-08-22 18:06 | EDPHYS ---
Physician Documentation [facility] Name: Amy Corral Age: 23 yrs Sex: Female : 2000 Arrival Date: 08/22/2023 Time: 17:25 Bed DIS3 Private MD: ED Physician Franco Allen HPI: 08/22 18:03 This 23 yrs old Female presents to ER via Ambulatory with complaints of Ring stuck on snw right hand middle finger-23 wks . 18:03 The patient or guardian reports ring stuck on her finger. The complaints affect the snw dorsal aspect of proximal phalanx of right middle finger. Onset: The symptoms/episode began/occurred gradually. Severity of symptoms: At their worst the symptoms were very mild. The patient has not experienced similar symptoms in the past. The patient has not recently seen a physician. no other complaints. Historical: - Allergies: 17:39 No Known Allergies; aa5 - PMHx: 17:39 scoliosis; aa5 - PSHx: 17:39 left knee; aa5 ROS: 18:00 Constitutional: Negative for fever, chills, and weight loss, Eyes: Negative for injury, snw pain, redness, and discharge, ENT: Negative for injury, pain, and discharge, Neck: Negative for injury, pain, and swelling, Cardiovascular: Negative for chest pain, palpitations, and edema, Respiratory: Negative for shortness of breath, cough, wheezing, and pleuritic chest pain, Abdomen/GI: Negative for abdominal pain, nausea, vomiting, diarrhea, and constipation, Back: Negative for injury and pain, : Negative for injury, bleeding, discharge, and swelling, Skin: Negative for injury, rash, and discoloration, Neuro: Negative for headache, weakness, numbness, tingling, and seizure, Psych: Negative for depression, anxiety, suicide ideation, homicidal ideation, and hallucinations, 18:00 MS/extremity: Positive for injury or acute deformity, swelling, of the right middle finger, Exam: 17:57 Constitutional: This is a well developed, well nourished patient who is awake, alert, snw and in no acute distress. Head/Face: Normocephalic, atraumatic. Eyes: Pupils equal round and reactive to light, extra-ocular motions intact. Lids and lashes normal. Conjunctiva and sclera are non-icteric and not injected. Cornea within normal limits. Periorbital areas with no swelling, redness, or edema. Neck: Trachea midline, no thyromegaly or masses palpated, and no cervical lymphadenopathy. Supple, full range of motion without nuchal rigidity, or vertebral point tenderness. No Meningismus. Chest/axilla: Normal chest wall appearance and motion. Nontender with no deformity. No lesions are appreciated. Cardiovascular: Regular rate and rhythm with a normal S1 and S2. No gallops, murmurs, or rubs. Normal PMI, no JVD. No pulse deficits. Respiratory: Lungs have equal breath sounds bilaterally, clear to auscultation and percussion. No rales, rhonchi or wheezes noted. No increased work of breathing, no retractions or nasal flaring. 17:57 Back: No spinal tenderness. No costovertebral tenderness. Full range of motion. Neuro: Awake and alert, GCS 15, oriented to person, place, time, and situation. Cranial nerves II-XII grossly intact. Motor strength 5/5 in all extremities. Sensory grossly intact. Cerebellar exam normal. Normal gait. Psych: Awake, alert, with orientation to person, place and time. Behavior, mood, and affect are within normal limits. 17:57 Abdomen/GI: Inspection: gravid appearance, is noted, 17:57 Skin: Appearance: normal except for affected area, right middle finger with ring that cannot be removed. pt has tried to use ice to decrease edema and has uses soap, etc to get ring off. + cap refill to all fingers. Vital Signs: 17:33 BP 129 / 67; Pulse 97; Resp 16 S; Temp 97.8(TE); Pulse Ox 97% on R/A; aa5 MDM: 17:35 Patient medically screened. steffi 18:00 Differential diagnosis: foreign body, circulation interruption. Data reviewed: vital snw signs, nurses notes. Counseling: I had a detailed discussion with the patient and/or guardian regarding the historical points, exam findings, and any diagnostic results supporting the discharge/admit diagnosis, the need for outpatient follow up, for definitive care, to return to the emergency department if symptoms worsen or persist or if there are any questions or concerns that arise at home. Response to treatment: the patient's symptoms have markedly improved after treatment. ED course: ring cutter x 3 used, Dr. Allen used street light wirer to clip ring and we uses a forcep over each side to spread metal away from pt's finger. Administered Medications: No medications were administered Disposition Summary: 08/22/23 18:05 Discharge Ordered Notes: Location: Home snw Condition: Stable snw Diagnosis - Encounter for change or removal of nonsurgical wound dressing snw Followup: snw - With: Emergency Department - When: As needed - Reason: Worsening of condition Followup: snw - With: Private Physician - When: 2 - 3 days - Reason: Recheck today's complaints, Continuance of care, Re-evaluation by your physician Discharge Instructions: - Discharge Summary Sheet snw - Finger Sprain, Adult snw Forms: - Medication Reconciliation Form snw - Thank You Letter snw - Antibiotic Education snw - Prescription Opioid Use snw - Patient Portal Instructions snw - Leadership Thank You Letter snw Signatures: Franco Allen MD MD cha Waters, Shelly, SENIOR [employer] CONSULTANT-C SENIOR [employer] CONSULTANT-Csnw Minerva Isaac, RN RN aa5
[2023-08-22 18:25] VITALS: BP 129/67; TEMP 97.8; O2SAT 97
== END 2023-08-22 18:21 | disposition home or self-care (01) ==
LOC: ER 17:25
DX: O26.892 Other specified pregnancy related conditions, second trimester (principal); W49.04XA Ring or other jewelry causing external constriction, initial encounter; Z3A.23 23 weeks gestation of pregnancy
CPT/HCPCS: 99281